=== PATIENT | female | born 1965 | race Caucasian/White ===

== ENCOUNTER 2020-07-22 19:18 | Emergency (ER) | payer OTHER, SELFPAY ==
[2020-07-22 19:24] VITALS: BP 188/86; PULSE 66; RESP 20; TEMP 37.3; O2SAT 98
--- NOTE | 2020-07-22 19:24 | ED.BACK ---
HPI - Back Pain/Injury General Chief Complaint: Back Pain/Injury Stated Complaint: back pain Time Seen by Provider: 07/22/20 19:24 Source: patient and RN notes reviewed History of Present Illness HPI Narrative: Patient is a 54-year-old female who presents the urgent care with complaints of mid back pain. 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 Patient states that she is only tried Tylenol for her pain and has to avoid NSAIDs. Patient denies any difficulty walking. Denies any urinary complaints. States that the pain exacerbates when bending at the waist and twisting. No other acute complaints. No acute distress noted. Patient read the plan of care. Related Data Home Medications Medication Instructions Recorded Confirmed cetirizine 10 mg PO DAILY 07/22/20 07/22/20 fluticasone propionate [Flonase 2 spray INTRANASAL DAILY 07/22/20 07/22/20 Allergy Relief] pantoprazole 40 mg PO QAM 07/22/20 07/22/20 Allergies Allergy/AdvReac Type Severity Reaction Status Date / Time latex Allergy Unknown RASH Verified 07/22/20 19:29 metronidazole Allergy Unknown N/V Verified 07/22/20 19:29 Review of Systems Review of Systems: Narrative: CONSTITUTIONAL: Denies fever, chills, or sweats. EYES: Denies visual changes, redness, or discharge. ENT: Denies rhinorrhea, congestion, sore throat, or otalgia. CARDIOVASCULAR: Denies chest pain, palpitations, or edema. RESPIRATORY: Denies cough or dyspnea. GASTROINTESTINAL: Denies abdominal pain, nausea, vomiting, or diarrhea. GENITOURINARY: Denies dysuria or hematuria. SKIN: Denies rash or itching. MUSCULOSKELETAL: Reports of mid back pain NEUROLOGIC: Denies headache, numbness, or weakness. All other systems reviewed are negative, except as documented in HPI. PMFSH Comments At the time of my signature, I reviewed and agree with the nursing past medical, surgical, social, and family history. There is no relevant family history pertinent to the patient complaint. Exam Narrative: Exam Narrative: GENERAL: This is a well-nourished, well-developed patient, in no apparent distress. HEAD: normocephalic, atraumatic. EYES: PERRL. Sclera clear/white. Vision is grossly intact. EARS: External ears normal NOSE: External nose normal with no obvious nasal discharge, nares without redness, no rhinorrhea. THROAT: Mucous membranes moist NECK: Neck supple SKIN: warm, intact with no suspicious lesions or rash, good texture and turgor. NEURO: awake, alert, and oriented to person, place and time. There were no obvious focal neurologic abnormalities. EXTREMITIES: No clubbing, cyanosis, or edema. BACK: Mild diffuse thoracic tenderness without deformity or crepitance. No flank tenderness. Negative bilateral SLE Course Vital Signs Vital signs: Vital Signs Temperature 99.2 F 07/22/20 19:24 Pulse Rate 66 07/22/20 19:24 Respiratory Rate 20 07/22/20 19:24 Blood Pressure 188/86 H 07/22/20 19:24 Pulse Oximetry 98 07/22/20 19:24 Temperature 99.2 F 07/22/20 19:24 Pulse Rate 66 07/22/20 19:24 Respiratory Rate 20 07/22/20 19:24 Blood Pressure 188/86 H 07/22/20 19:24 Pulse Oximetry 98 07/22/20 19:24 Reviewed-patient is informed that they may have pre-hypertension or hypertension based on a blood pressure reading in the department. I recommend the patient call the primary care provider listed on their discharge instructions or a physician of their choice this week to arrange follow-up for further evaluation of possible pre-hypertension or hypertension. MDM - Back Pain/Injury MDM Narrative Medical decision making narrative: Advised the patient to complete steroid regimen as prescribed. Make sure to use a muscle relaxer as needed for muscle spasms or prior to bedtime. Eat and drink with the medications. Be aware that Flexeril will make you drowsy and I would not advise
== END 2020-07-22 19:35 | disposition home or self-care (01) ==
PROVIDERS: Emergency Provider Nurse Practitioner Family; PCP Family Medicine
DX: M54.6 Pain in thoracic spine (principal); K21.9 Gastro-esophageal reflux disease without esophagitis
CPT/HCPCS: 99213; G0463

== ENCOUNTER 2024-01-31 17:37 | Emergency (ER) | payer BC, SELFPAY ==
[2024-01-31 17:46] VITALS: BP 171/106; PULSE 95; RESP 20; TEMP 36.7; O2SAT 97
--- NOTE | 2024-01-31 18:16 | ED.ABDPAIN ---
HPI - Abdominal Pain General Chief Complaint: Abdominal Pain Stated Complaint: abdo pains/nausea Time Seen by Provider: 01/31/24 18:16 Source: patient and RN notes reviewed Mode of arrival: ambulatory Limitations: no limitations History of Present Illness HPI narrative: 58-year-old female with history of hiatal hernia repair 3 years ago presented for complaint of intermittent upper abdominal pain, bloating, nausea and belching for 5 days. LBM yesterday, states it was small and hard over the past few days. States she had one episode of vomiting at onset. Endorses decreased appetite. Rates abdominal pain 8/10 at times. Currently states she feels 'uncomfortable.' States she is 'concerned for her gallbladder, pancreas or colon. Denies urinary complaints, back/flank pain, vomiting, diarrhea, or fever. Related Data Home Medications Medication Instructions Recorded Confirmed cetirizine 10 mg capsule 10 mg PO DAILY 07/22/20 01/31/24 fluticasone propionate 50 2 spray intranasal DAILY 07/22/20 01/31/24 mcg/actuation nasal spray,suspension (Flonase Allergy Relief) ergocalciferol (vitamin D2) 1,250 1,250 mcg PO WEEKLY 01/31/24 01/31/24 mcg (50,000 unit) capsule Allergies Allergy/AdvReac Type Severity Reaction Status Date / Time latex Allergy Unknown RASH Verified 01/31/24 18:11 fluconazole [From Diflucan] AdvReac Unknown Nausea and Verified 01/31/24 18:11 Vomiting metronidazole AdvReac Unknown N/V Verified 01/31/24 18:11 Review of Systems Review of Systems: CONSTITUTIONAL: Denies body aches, fever, chills ENT: Denies rhinorrhea, congestion CARDIOVASCULAR: Denies chest pain, palpitations, or edema. RESPIRATORY: Denies cough or dyspnea. GASTROINTESTINAL: Endorses abdominal pain, nausea, Denies vomiting, diarrhea, hematochezia, melena, hematemesis GENITOURINARY: Denies dysuria, hematuria, or CVA tenderness. SKIN: Denies rash, itching, or wounds. MUSCULOSKELETAL: Denies back pain, joint pain, or myalgia. NEUROLOGIC: Denies headache, numbness, tingling, or weakness. All systems reviewed & are unremarkable except as noted in HPI and below PMFSH Surgical History Surgical History (Updated 01/31/24 @ 19:19 by Raiza Macedo APRN) History of repair of hiatal hernia Comments At time of signature, I have reviewed and agree with nursing past medical, surgical, social and family history unless otherwise noted. Please see nursing chart for further information. There is no relevant family history pertinent to the presenting complaint Exam Narrative: GENERAL: Well-appearing, and in no acute distress. EYES: EOMI. Conjunctivae normal. ENT: Mucous membranes pink and moist. CHEST: No respiratory distress. Clear to auscultation. HEART: Regular rate and rhythm. No murmur appreciated. Normal peripheral pulses. ABDOMEN: abd soft, mildly distended, normal active bowel sounds. Tender abdomen to bilateral upper quadrants, No guarding, rebound tenderness, asymmetry EXTREMITIES: Normal range of motion. No edema. SKIN: Warm, dry, no rash. Capillary refill normal. Normal skin turgor. NEURO: No focal deficits. Alert and oriented x3. Course Course Emergency Course: Patient is aware of diagnosis, understands and agrees to treatment plan. Anticipatory guidance given. Patient agrees to follow-up as directed and is aware of reasons to seek care at the emergency department. Portions of this record may have been created with voice recognition software Level of Care: Express Care Visit Vital Signs Vital signs: Vital Signs Temperature 98.1 F 01/31/24 17:46 Pulse Rate 95 01/31/24 17:46 Respiratory Rate 01/31/24 17:46 Blood Pressure 171/106 H 01/31/24 17:46 Pulse Oximetry 97 01/31/24 17:46 Oxygen Delivery Room Air 01/31/24 17:46 Temperature 98.1 F 01/31/24 17:46 Pulse Rate 95 01/31/24 17:46 Respiratory Rate 20 01/31/24 17:46 Blood Pressure 171/106 H 01/31/24 17:46 Pu
== END 2024-01-31 18:40 | disposition left against medical advice (07) ==
PROVIDERS: Emergency Provider Nurse Practitioner Family; PCP Family Medicine
DX: R10.11 Right upper quadrant pain (principal); R10.12 Left upper quadrant pain; K21.9 Gastro-esophageal reflux disease without esophagitis
CPT/HCPCS: 81003; 87086; 99203; G0463

== ENCOUNTER 2025-01-17 08:27 | Emergency (ER) | payer BC, SELFPAY ==
[2025-01-17 08:38] VITALS: BP 142/87; PULSE 70; RESP 16; TEMP 36.6; O2SAT 96
--- OUTSIDE RECORDS SUMMARY | 2025-01-17 08:41 | XMS_ITS | Clinical Summary ---
Author Organization [facility] Address [address] [place] [id number] Care Team Providers Care Endless Bed Drum Sander Name Role Phone Unavailable Primary Care Provider Unavailabl e Encounters Date Type Department Care Team Description 12/05/2024 External Device Data [facility] ABSTRACTION Provider, Abstract 12/05/2024 External Device Data [facility] ABSTRACTION Provider, Abstract 11/20/2024 External Device Data [facility] ABSTRACTION Provider, Abstract from Last 3 Months Social History Tobacco Use Types Packs/Day Years Used Date Smoking Tobacco: Never Assessed Comments Unknown Sex and Gender Information Value Date Recorded Sex Assigned at Not on file 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 Gender Identity Not on file Sexual Orientation Not on file Plan of Treatment Health Maintenance Due Date Last Done Comments HEPATITIS B VACCINES (1 of 3 - 19+ 3-dose series) 1986 CERVICAL CANCER SCREENING 1997 FIT-DNA Q 3 years 2012 FIT/FOBT Q 1 year 2012 Flex Sig/CT Colonography Q 5 years 2012 ZOSTER VACCINE (1 of 2) 2017 DTAP/TDAP/TD VACCINES (2 - T d or Tdap) 11/20/2017 11/20/2007 BREAST CANCER SCREENING 12/22/2023 12/22/19 23, 11/25/2021, 11/24/2020, Additional history exists INFLUENZA VACCINE (#1) 2024 COLORECTAL SCREENING 04/19/2032 04/19/2022 Colorectal Cancer Screening 04/19/2032 Insurance [employer]
--- OUTSIDE RECORDS SUMMARY | 2025-01-17 08:41 | XMS_ITS | Clinical Summary ---
Author Organization [facility] Address [address] [place] [address] Phone Care Team Providers Care Pharmaceutical Specialty Representative Name Role Phone Federico Vasques MD Primary Care Provider [phone] Allergies Active Allergy Reactions Criticality Noted Date Comments Fluconazole Vomiting 02/01/2024 Metronidazole Unknown 02/02/2024 Medications cetirizine (ZyrTEC) 10 MG Tablet Take 10 mg by mouth daily. 4 Active ergocalciferol (VITAMIN D) 30412 UNIT Capsule Take 1.25 mg by mouth once a week. 4 Active Fluticasone Furoate (Flonase Sensimist) 27.5 MCG/SPRAY Suspension 2 Sprays by Nasal route daily. Active HYDROcodone-jairo taminophen (NORCO) 5-325 MG TabletIndicatio ns:Enteritis Take 1 Tablet by mouth every 4 hours as needed for Mild or more severe pain. 12 Tablet 4 Active ondansetron (ZOFRAN-ODT) 4 MG TABLET DISPERSIBLE Take 1 Tablet by mouth every 6 hours as needed for Nausea - 1st line. 10 Tablet 4 Active pantoprazole (PROTONIX) 40 MG Tablet Delayed Response Take 1 Tablet by mouth daily. 30 Tablet 4 Active polyethylene glycol (GLYCOLAX, MIRALAX) 17 g PackIndications :Constipation Take 1 Packet by mouth 2 times daily as needed for Constipation - 1st line. Dissolve in 4-8 oz of liquid. Indications: Constipation 90 Packet 4 Active senna (SENOKOT) 8.6 MG Tablet Take 1 Tablet by mouth 2 times daily as needed for Constipation - 2nd line. 30 Tablet 4 Active potassium chloride SA (KLORCON M) 20 MEQ Tablet Controlled Release Take 1 Tablet by mouth daily. 90 Tablet 4 Active Active Problems Problem Noted Date Diagnosed Date Enteritis 02/01/2024 DILMA on CPAP 02/01/2024 Chronic sinusitis 02/01/2024 Hiatal hernia 02/01/2024 Vitamin D deficiency 02/01/2024 Obesity 02/01/2024 Allergic rhinitis 02/01/2024 Encounters Date Type Department Care Team Description 12/05/2024 Transcribe Orders [facility] Central Scheduling [address] [place] [id number] Carlton Scott MD Visit for screening mammogram (Primary Dx) from Last 3 Months Social History Tobacco Use Types Packs/Day Years Used Date Smoking Tobacco: Never Smokeless Tobacco: Never Tobacco Cessation:Counseling Given: Not Answered Alcohol Use Standard Drinks/Week Comments Never 0 (1 standard drink = 0.6 oz pur e alcohol) [facility] Utilities Answer Date Recorded In the past 12 months has [employer], gas, oil, or water company threatened to shut off services in your home? Patient declined 02/01/2024 Social Connection and Isolation Panel [NHANES] A nswer Date Recorded In a typical week, how many times do you talk on the phone with family, friends, or neighbors? Patient declined 02/01/2024 How often do you get togethe r with friends or relatives? Patient declined 02/01/2024 How often do you attend anabaptism or jain serv ices? Patient declined 02/01/2024 Active Member of Clubs or Organizations Not on f ile 02/01/2024 How often do you attend meet ings of the clubs or organizations you belong to? Patient declined 02/01/2024 Are you , , di vorced, , never , or living with a partner? Patient declined 02/01/2024 AUDIT-C Answer Date Recorded Q1: How often do you have a drink containing alc ohol? Patient declined 02/01/2024 Q2: How many drinks containi ng alcohol do you have on a typical day when you are drinking? Patient declined 02/01/2024 Q3: How often do you have si x or more drinks on one occasion? Patient declined 02/01/2024 Overall Financial Resource Strain (CARDIA) Answe r Date Recorded How hard is it for you to pa y for the very basics like food, housing, medical care, and heating? Patient declined 02/01/2024 [facility] - Occupational Stress Questionnaire Answer Date Recorded Do you feel stress - tense, restless, nervous, or anxious, or unable to sleep at night because your mind is troubled all the time - these days? Patient declined 02/01/2024 Exercise Vital Sign Answer Date Recorde d On average, how many days pe r week do you engage in moderate to strenuous exercise (like a brisk walk)? Patient declined On average, how many minutes do you engage in exercise at this level? Patient declined 02/01/2024 Hunger Vital Sign Answer Date Recorded Within the past 12 months, y ou worried that your food would run out before you got the money to buy more. Patient declined Within the past 12 months, t he food you bought just didn't last and you didn't have money to get more. Patient declined PRAPARE - Transportation Answer Date Re corded In the past 12 months, has l ack of transportation kept you from medical appointments or from getting medications? Patient declined 02/01/2024 In the past 12 months, has l ack of transportation kept you from meetings, work, or from getting things needed for daily living? Patient declined 02/01/2024 Housing Stability Vital Sign Answer Chava e Recorded In the last 12 months, was t here a time when you were not able to pay the mortgage or rent on time? Patient declined 02/01/20 24 In the last 12 months, how many places have you lived? 1 02/01/2024 In the last 12 months, was t here a time when you did not have a steady place to sleep or slept in a jail (including now)? Patient declined 02/01/2024 Comments No Sex and Gender Information Value Date Recorded Sex Assigned at Not on file Legal Sex Female 11:27 PM CDT Gender Identity Not on file Sexual Orientation Not on file Last Filed Vital Signs Vital Sign Reading Time Taken Comments Blood Pressure 154/77 02/02/2024 2:00 PM CDT Pulse 58 02/02/2024 2:00 PM CDT Temperature 36.4 C (97.5 F) 02/02/2024 2:00 PM CDT Respiratory Rate 18 02/02/2024 2:00 PM CDT Oxygen Saturation 96% 02/02/2024 2:00 PM CDT Inhaled Oxygen Concentration - - Weight 100.6 kg (221 lb 11.2 oz) 02/01/2024 8:30 PM CDT Height 170.2 cm (5' 7 ) 02/01/2024 8:30 PM CDT Body Mass Index 34.72 02/01/2024 8:30 PM CDT Plan of Treatment Health Maintenance Due Date Last Done Comments Hepatitis C Virus (HCV) Screening 1967 Hepatitis B Immunization (1 of 3 - 19+ 3-dose series) 1986 Pap Smear 1988 Cervical Cancer Screening (CCS) 1997 HPV/Cotest 1997 Cologuard 2017 Pneumococcal Immunization (50+ years) (1 of 1 - PCV) 2017 Zoster Immunization (1 of 2) 2017 Immunochemical Fecal Occult Blood 08/27/2023 08/27/2022 Influenza Immunization (#1) 2024 SARS-COV-2 Immunization ( season) 2024 02/24/2021, 01/29/2021 Mammogram 01/05/2025 01/05/2024, 02/0 06/2023, 12/22/2022, Additional history exists Colonoscopy 04/19/2032 04/19/2022 Colorectal Cancer Screening 04/19/2032 Respiratory Syncytial Virus (RSV) Immunization (Adult) (1 - 1-dose 75+ series) 2042 04/19/2022 DTaP/Tdap/Td Immunization Discontinued 11/20/2007 TdaP Immunization Completed 11/20/2007 Meningococcal Immunization (ACWY) Aged Out No longer eligible based on patient's age to complete this topic Rotavirus Immunization Aged Out No lo nger eligible based on patient's age to complete this topic Procedures Procedure Name Priority Date/Time Associated Diagnosis Comments NAYE SCREENING BILATERAL DIGITAL W CAD W HUDSON Routine 01/05/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 Visit for screening mammogram from Last 3 Months or Most Recently Relevant to Health Maintenance Results * NAYE SCREENING BILATERAL DIGITAL W CAD W HUDSON (01/05/2024 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 Current study was also evaluated with PlaymysongD version 7.2. 2D digital mammographic views, as well as 3D digital tomosynthesis were performed in the CC and MLO projections. CLINICAL: Routine screening. Patient has no complaints. No personal history of cancer. No family history of breast cancer. COMPARISONS: Comparison is made to exams dated: 12/22/2022, 11/25/2021, and 11/24/2020 [facility]. BREAST TISSUE:The tissue of both breasts is heterogeneously dense. This may lower the sensitivity of mammography. FINDINGS: No significant masses, calcifications, or other findings are seen in either breast. There has been no significant interval change. IMPRESSION: BI-RAD 1 NEGATIVE There is no mammographic evidence of malignancy. A 1 year screening mammogram is recommended. A letter will be sent to the patient with these results. The patient will be entered into a reminder system with a target due date of 1 year for her next screening exam. Electronically signed by: Viviana phillips/sandee:01/05/2024 14:31:11 Dental Hygiene Administrative Assistant(s): RT Kanika(R)(M), [facility] letter sent: Normal Exam Reading location: [facility] BI-RADS: 1 Negative Procedure Note Viviana Duarte MD - 01/05/2024 - NAYE SCREENING BILATERAL DIGITAL W CAD W HUDSON BILATERAL DIGITAL SCREENING MAMMOGRAM 3D/2D WITH CAD WITH MEDIOLATERAL OBLIQUE CRANIOCAUDAL: 01/05/2024 The study was acquired using digital technology and interpreted from soft copy. Current study was also evaluated with ICAD version 7.2. 2D digital mammographic views, as well as 3D digital tomosynthesis were performed in the CC and MLO projections. CLINICAL: Routine screening. Patient has no complaints. No personal history of cancer. No family history of breast cancer. COMPARISONS: Comparison is made to exams dated: 12/22/2022, 11/25/2021, and 11/24/2020 [facility]. BREAST TISSUE:The tissue of both breasts is heterogeneously dense. This may lower the sensitivity of mammography. FINDINGS: No significant masses, calcifications, or other findings are seen in either breast. There has been no significant interval change. IMPRESSION: BI-RAD 1 NEGATIVE There is no mammographic evidence of malignancy. A 1 year screening mammogram is recommended. A letter will be sent to the patient with these results. The patient will be entered into a reminder system with a target due date of 1 year for her next screening exam. Electronically signed by: Viviana Duarte M.D. ll/sandee:01/05/2024 14:31:11 Dental Hygiene Administrative Assistant(s): RT Kanika(R)(M), [facility] letter sent: Normal Exam Reading location: [facility] BI-RADS: 1 Negative Federico Vasques MD IMG MAMMO ORDERABLES Aicha l Result from Last 3 Months or Most Recently Relevant to Health Maintenance Insurance [facility] Advance Directives * Full Code (Latest Code Status on File) Date Activated Date Inactivated Comments 02/01/2024 8:29 PM 02/02/2024 5:29 PM CPR-Full Huan atment: FULL ARREST: Attempt Resuscitation/CPR wit intubation and mechanical ventilation. PRE-ARREST: Use entire range of life support measures to stabilize the patient. Care Teams Pharmaceutical Specialty Representative Relationship Specialty Start Date End Date Feder[place] [address] PCP - General Internal Medicine 11/24/20
--- NOTE | 2025-01-17 08:43 | ED.FEMALEGU ---
HPI - Female Genitourinary General Chief complaint: Urogenital-Female Stated complaint: Urinary Problem Time Seen by Provider: 01/17/25 08:43 Source: patient and RN notes reviewed Mode of arrival: ambulatory Limitations: no limitations History of Present Illness HPI Narrative: 59 y/o female presented for c/o low abdominal aching for 2 days. Endorses urinary urgency and frequency and odor to urine which she says smells like yeast. Also says she is voiding small amounts. Denies vaginal itching, hematuria, nausea, vomiting, flank pain, constipation, diarrhea, fevers or chills. Took AZO 0100. Related Data Home Medications ?Medication ?Instructions ?Recorded ?Confirmed ?Last Taken ?Type cetirizine 10 mg capsule 10 mg PO DAILY 07/22/20 01/17/25 Unknown History fluticasone propionate 50 2 spray intranasal DAILY 07/22/20 01/31/24 Unknown History mcg/actuation nasal spray,suspension (Flonase Allergy Relief) Allergies Allergy/AdvReac Type Severity Reaction Status Date / Time latex Allergy Unknown RASH Verified 01/17/25 08:52 fluconazole (From Diflucan) AdvReac Unknown Nausea and Verified 01/17/25 08:52 Vomiting metronidazole AdvReac Unknown N/V Verified 01/17/25 08:52 Review of Systems Review of Systems: CONSTITUTIONAL: Denies body aches, fever, chills, or sweats. CARDIOVASCULAR: Denies chest pain, palpitations, or edema. RESPIRATORY: Denies cough or dyspnea. GASTROINTESTINAL: Denies abdominal pain, nausea, vomiting, or diarrhea. GENITOURINARY: Reports dysuria, frequency,denies hematuria, flank pain SKIN: Denies rash, itching, or wounds. MUSCULOSKELETAL: Denies back pain or myalgia. [facility] Surgical History Surgical History (Updated 01/31/24 @ 19:19 by Raiza Macedo, ANIBAL) History of repair of hiatal hernia Comments At time of signature, I have reviewed and agree with nursing past medical, surgical, social and family history unless otherwise noted. Please see nursing chart for further information. There is no relevant family history pertinent to the presenting complaint Exam Narrative: GENERAL: Well-appearing ENT: Mucous membranes pink and moist. CHEST: No respiratory distress. Clear to auscultation. HEART: Regular rate and rhythm. ABDOMEN: Soft, nontender, nondistended, normal active bowel sounds. No CVA tenderness SKIN: Warm, dry, no rash. NEURO: No focal deficits. Alert and oriented x3. Gait steady. PSYCH: Normal affect. Course Course Emergency Course: Patient is aware of diagnosis, understands and agrees to treatment plan. Anticipatory guidance given. Patient agrees to follow-up as directed and is aware of reasons to seek care at the emergency department. Portions of this record may have been created with voice recognition software Level of Care: Express Care Visit Vital Signs Vital signs: Vital Signs Temperature 97.9 F 01/17/25 08:38 Pulse Rate 70 01/17/25 08:38 Respiratory Rate 16 01/17/25 08:38 Blood Pressure 142/87 H 01/17/25 08:38 Pulse Oximetry 96 01/17/25 08:38 Oxygen Delivery Room Air 01/17/25 08:38 Temperature 97.9 F 01/17/25 08:38 Pulse Rate 70 01/17/25 08:38 Respiratory Rate 16 01/17/25 08:38 Blood Pressure 142/87 H 01/17/25 08:38 Pulse Oximetry 96 01/17/25 08:38 Oxygen Delivery Room Air 01/17/25 08:38 Reviewed MDM - Female Genitourinary MDM Narrative Medical decision making narrative: Discussed physical exam findings and urine dip. Pt will try OTC monistat if vaginal itching develops. Advised supportive measures and signs/symptoms to go to the ER. Pt is appropriate for outpt treatment and f/u. Differential Diagnosis Differential diagnosis: Likely urinary tract infection, vaginitis and cystitis Discharge Plan Discharge Clinical Impression: Dysuria Patient Disposition: Home, Self-Care Condition: Stable Instructions: Antibiotic Form, Urinary Tract Infection in Women (ED) Additional Instructions: Take the antibiotic as prescribed The urine will be sent of for a culture to identify what type of bacteria is causing your infection. If the culture shows that the antibiotic will not get rid of your infection, you will be notified and a new antibiotic will be called in for you. Increase water intake you will need to follow up with your PCP, call to schedule an appointment. Go to the ER for any worsening symptoms or concerns Patient Language: [place] Citizen Prescriptions: New nitrofurantoin monohyd/m-cryst [Macrobid] 100 mg capsule 100 mg PO Q12H 5 Days Qty: 10 0RF Rx Instructions: must administer with a meal/food No Action fluticasone propionate [Flonase Allergy Relief] 50 mcg/actuation [employer],Suspension 2 spray INTRANASAL DAILY cetirizine 10 mg Capsule 10 mg PO DAILY Follow-up/Referrals: Harms,Federico Lawson M.D. [Primary Care Provider] - Time of Disposition: 09:09
--- OUTSIDE RECORDS SUMMARY | 2025-01-17 08:44 | XMS_ITS | Clinical Summary ---
Author Organization [facility] Medical Office Building [address] Address [address] [place] [address] Care Team Providers Care Fire Boss Name Role Phone Vijay Samuels MD Unavailable [phone] Carlton Scott MD Unavailable [phone] Yoselyn Plata MD Unavailable Lluvia Knapp NP Unavailable [phone] Federico Vasques MD Primary Care Provider [phone] Allergies Active Allergy Reactions Criticality Noted Date Comments Fluconazole Nausea only,Vomiting,Nausea And Vomiting,Diarrhea Low 01/05/2010 Reaction: nausea, vomiting, Latex Rash Medium Metronidazole Other (See comments),Nausea & Vomiting,Nausea And Vomiting,Vomiting,Di arrhea Low 01/05/2010 Reaction: Gastrointestinal Intolerance, , Reaction: NAUSEA Medications fluticasone (VERAMYST) 27.5 mcg/actuation nasal sprayIndication s:Allergic Rhinitis Administer 2 sprays into each nostril daily Active cetirizine (ZyrTEC) 10 mg tablet TAKE 1 TABLET BY MOUTH DAILY NEEDED FOR ALLERGIES 90 tablet 4 4 Active solriamfetoL (Sunosi) 150 mg tablet Take 1 tablet (150 mg total) by mouth daily 30 tablet 5 01/24/20 25 Active Active Problems Problem Noted Date Diagnosed Date Annual physical exam 11/09/2024 Assessment & Plan (11/09/2024 10:36 AM FARM FACILITY MANAGER): Focus of exam is preventative in nature, Reivewed immunizatonis, revewied sun/skin cancer screening. Reviewed colon/breast cancer screening and will montior response. Encourage helathy food choices. Lipid screening 11/09/2024 Assessment & Plan (11/09/2024 10:37 AM FARM FACILITY MANAGER): Labwork ordered and pending. DILMA on CPAP 11/09/2024 Assessment & Plan (11/09/2024 10:37 AM FARM FACILITY MANAGER): Reviewed nightly positive pressure therapy and will continue to follow response. BMI 33.0-33.9,adult 11/09/2024 Assessment & Plan (11/09/2024 10:37 AM FARM FACILITY MANAGER): Encourage 150min/week aerobic exericse. Heatlhy food choices. Obesity (BMI 30.0-34.9) 11/09/2024 Assessment & Plan (11/09/2024 10:37 AM FARM FACILITY MANAGER): As above. Intermittent constipation 04/13/2024 Tubular adenoma of colon 04/13/2024 Chronic sinusitis 03/05/2024 Assessment & Plan (11/09/2024 10:36 AM FARM FACILITY MANAGER): As above. Assessment & Plan (03/05/2024 9:12 AM CDT): Blood Allergy testing CT Sinus Continue current allergy therapy Risks and complications include anesthesia, bleeding, infection, injury to surrounding structures including brain with csf leak, eyes with vision changes, nasal mucosa, atrophic rhinitis, benign versus malignant pathology, no guarantee that sense of smell will return, need for further surgery. Enteritis 02/07/2024 Nausea vomiting and diarrhea 02/07/2024 Acute non-recurrent pansinusitis 10/11/2023 Assessment & Plan (10/11/2023 11:06 AM FARM FACILITY MANAGER): Prescribed Augmentin, instructed patient to take medication with food. Complete prednisone taper as prescribed. Recommended patient use sinus rinse with distilled water only. Continue Flonase. Follow-up if no improvement. Jovanni med sinus rinse Diverticular disease 03/18/2022 History of diverticulitis 03/18/2022 Assessment & Plan (11/09/2024 10:36 AM FARM FACILITY MANAGER): No recurrent enteritis sypjtoms. Reivweed workup with GI. History of repair of hiatal hernia 02/09/2022 Assessment & Plan (11/09/2024 10:35 AM FARM FACILITY MANAGER): Limits emesis and wretchintg during periods of prior evalaution. Assessment & Plan (12/29/2022 5:01 PM FARM FACILITY MANAGER): Repair of the hiatal hernia cleared most of her GI symptoms. Good recover and no issues at this time. Passage of loose stools 02/09/2022 Right sided abdominal pain 02/09/2022 Change in bowel habits 02/09/2022 Dyspepsia 04/09/2021 Assessment & Plan (12/29/2022 5:03 PM FARM FACILITY MANAGER): Related to GERD and improved after the hiatal hernia repair. She is taking Probiotics, and advised that she can continue if she feels better with the probiotics. Also advised to take a month break every few months to allow normal GI lizabeth growth. No Gi issues and she will call for follow up if needed. Assessment & Plan (06/24/2022 9:35 AM CDT): Patient with chronic functional dyspepsia likely part of IBS. Will try low FODMAP diet. Information provided. Assessment & Plan (04/09/2021 10:45 AM CDT): Discussed diet to avoid uncooked raw vegetables and avoid sweet sugar foods. Can use Reglan as needed. No need for further evaluation. Follow up as needed and patient to call for any new problems. Hx of adenomatous colonic polyps 04/09/2021 Assessment & Plan (04/09/2021 10:46 AM CDT): Next colonoscopy in 2021. Encounter for screening for lipoid disorders Assessment & Plan (11/03/2020 8:25 AM FARM FACILITY MANAGER): Lipid panel ordered; will call w/results when received. Reviewed diet/exercise recommendations. Encounter for screening mamm ogram for malignant neoplasm of breast 11/03/2020 Assessment & Plan (11/03/2020 8:26 AM FARM FACILITY MANAGER): Mammogram order given; will call with results when received. Encouraged to perform monthly SBE. Encounter for medical examination to establish c are 11/01/2020 Assessment & Plan (11/01/2020 9:04 PM FARM FACILITY MANAGER): -reviewed screening guidelines: no family history of breast or colon cancer. -Encouraged monthly SBEs. Mammogram 06/27/19; reordered today. -Colonoscopy 08/12/17, repeat 5 yrs. -UTD on immunizations. -discussed diet/exercise: daily recommendations of 20-30 minutes physical activity daily, watch fat/sugar intake. -denies safety/violence. Wears seatbelt. Aware to not text/talk and drive. -does not smoke nor drink ETOH -lives at home with supportive family Severe obstructive sleep apnea 06/03/2020 Assessment & Plan (11/09/2024 10:35 AM FARM FACILITY MANAGER): Continues on nightly CPAP therapy to good effect and will montior response. Assessment & Plan (11/01/2020 9:06 PM FARM FACILITY MANAGER): Managed by Dr Plata. DILMA/CPAP. Hiatal hernia 10/14/2019 Overview (06/17/2020): Managed by GI Assessment & Plan (12/04/2020 10:52 AM FARM FACILITY MANAGER): I will set the patient up for a paraesophageal hernia repair. Even though she has normal esophageal motility seen on esophagram she does complain of some mild dysphagia as again she quotes have a small esophagus, I will therefore Set her up for a partial wrap. Postoperative restrictions have been discussed. Surgical procedure has been explained. All questions answered at this time. I will order a CT scan to better define the anatomy in preparation for surgery Assessment & Plan (12/03/2020 3:36 PM FARM FACILITY MANAGER): Patient continues to have symptoms of gastroesophageal reflux disease likely related to the presence of the small hiatal hernia contributing to the reflux. I will refer the patient to surgery for hiatal hernia repair consideration. Assessment & Plan (07/05/2020 11:44 PM CDT): Small hiatal hernia noted on endoscopy. Symptoms controled. Assessment & Plan (11/11/2019 7:27 PM FARM FACILITY MANAGER): This is likly adding to her persistent symptoms. Will follow up in 3 months. If she remained symptomatic specially with vomiting and regurgitation then schedule her for 24 hours esophageal impedence pH monitoring with motility testing and discuss surgical repair. Assessment & Plan (10/14/2019 6:47 PM FARM FACILITY MANAGER): This is likely a main contributing factor for her GERD symptoms. She may eventually need surgical repair surgery if medications did not control her symptoms. Class 2 obesity due to exces s calories without serious comorbidity with body mass index (BMI) of 35.0 to 35.9 in adult 09/24/2019 Assessment & Plan (06/17/2020 10:30 AM CDT): Weight reduction, daily exercise and dietary modifications recommended. Assessment & Plan (04/03/2020 9:38 AM CDT): Discussed with the patient diet modifications. This will help her symptoms and also will assure better outcome if we want with hiatal hernia repair surgery for acid reflux disease. Assessment & Plan (11/11/2019 7:29 PM FARM FACILITY MANAGER): Patient need agressive intervention for weight loss. So far seems she want to do it herself. Weight loss will improve outcome for HH repair surgery as well as likely help better control her symptoms. Assessment & Plan (10/14/2019 6:48 PM FARM FACILITY MANAGER): Patient will benefit from weight loss to control her symptoms, and also improve outcome with any surgical repair of the hiatal hernia. Assessment & Plan (09/24/2019 8:06 PM FARM FACILITY MANAGER): Worsening. Encouraged patient to decrease weight, increase daily exercise, and modify diet. GERD (gastroesophageal reflux disease) 9 Overview (06/17/2020): Managed by GI Assessment & Plan (12/29/2022 5:01 PM FARM FACILITY MANAGER): All symptoms resolved after repair of the hiatal hernia. No GI issues now. Advised to continue on healthy life style and diet. Assessment & Plan (06/24/2022 9:33 AM CDT): Asymptomatic now after the surgical repair of the hiatal hernia. Assessment & Plan (04/09/2021 10:43 AM CDT): Doing well. All symptoms resolved after the hiatal hernia repair. Can use Protonix as needed only. Follow up as needed. Assessment & Plan (12/03/2020 3:35 PM FARM FACILITY MANAGER): Persistent regurgitation and the vomiting and heartburn symptoms likely related to her small hiatal hernia and low GE junction sphincter pressure. Will continue Protonix on daily basis and also restart Reglan twice a day. Assessment & Plan (11/01/2020 9:05 PM FARM FACILITY MANAGER): Taking pantoprazole 40mg daily. Reviewed provocative foods to avoid: caffeine, citrus, ETOH, carbonated drinks, fried/fatty/fast foods & rich/creamy sauces. Reviewed diet/exercise recommendations: 20-30min physicaly activity daily at minimum. Reviewed med Ses & scheduling. Weight loss will help improve GERD sxs. Keep HOB elevated 30 degrees & not eat 2-3 hrs before bedtime. Assessment & Plan (07/05/2020 11:43 PM CDT): Doing well with Protonix. Continue daily or every other day. Follow up 1 year. Assessment & Plan (06/17/2020 10:30 AM CDT): Managed by GI. Assessment & Plan (04/03/2020 9:37 AM CDT): Symptoms are controlled with the current regimen. Continue the same. Follow-up 3 months for Assessment & Plan (11/11/2019 7:26 PM FARM FACILITY MANAGER): Continue Protonix, discussed diet again, and will follow up in 3 months. Will add Reglan 10 mg to be taken 1-2 times daily before meals to improve gastric emptying and avoid regurgitation. Assessment & Plan (10/14/2019 6:45 PM FARM FACILITY MANAGER): Still having regurgitations adding to her dysphagia. Will continue Protonix daily, add Regaln 10 mg at night. Follow up in 4-6 weeks. Assessment & Plan (09/24/2019 8:06 PM FARM FACILITY MANAGER): Managed by GI. Perez. Cont. Current meds. Assessment & Plan (07/22/2019 11:20 AM CDT): Start Protonix once daily. Follow up in 1 month. Allergic rhinitis 05/20/2017 Assessment & Plan (11/09/2024 10:35 AM FARM FACILITY MANAGER): Continues on dual agent therapy and will continue on fluticasone and cetirizine. WIll follow response. Assessment & Plan (03/05/2024 9:11 AM CDT): Blood Allergy testing CT Sinus Continue current allergy therapy Risks and complications include anesthesia, bleeding, infection, injury to surrounding structures including brain with csf leak, eyes with vision changes, nasal mucosa, atrophic rhinitis, benign versus malignant pathology, no guarantee that sense of smell will return, need for further surgery. Assessment & Plan (10/11/2023 11:07 AM FARM FACILITY MANAGER): Patient taking Zyrtec nightly, unsure if she is noted any improvement. Would benefit from sinus rinses as mentioned above. Can try switching up antihistamines (claritin, xyzal),Will re-evaluate at follow-up next month. Assessment & Plan (06/17/2020 10:30 AM CDT): Symptoms improved with current regiment, continue. Assessment & Plan (09/24/2019 8:06 PM FARM FACILITY MANAGER): Add Zyrtec. Cont Flonase. Pure hypercholesterolemia 05/20/2017 Assessment & Plan (06/17/2020 10:30 AM CDT): Low chol diet recommended. Labs ordered, will follow. Assessment & Plan (04/03/2020 9:37 AM CDT): Patient has small hiatal hernia which I think contributing factor to her acid reflux. I think the patient will benefit from repair of the hiatal hernia which may help her to get off medications. In preparation she will need a barium swallow and motility study which will be arranged for the patient in the next visit. Follow-up in 3 months. Assessment & Plan (09/24/2019 8:05 PM FARM FACILITY MANAGER): Labs ordered, low chol diet recommended. Resolved Problems Problem Noted Date Diagnosed Date Resolved Date BMI 33.0-33.9,adult 11/03/2020 10/11/20 23 Assessment & Plan (11/03/2020 8:25 AM FARM FACILITY MANAGER): Reviewed need to lose weight, reviewed health benefits. Reviewed recommendations for daily intake & activity 20-30 minutes/day. Discussed healthy diet and importance of regular physical activity. UTI symptoms 11/03/2020 10/11/2023 Assessment & Plan (11/03/2020 8:56 AM FARM FACILITY MANAGER): NEG UA. Will start OTC Azo/yeast treatment. Dysphagia 07/19/2019 04/09/2021 Overview (06/17/2020): Managed by GI Assessment & Plan (07/05/2020 11:43 PM CDT): Resolved now. Assessment & Plan (04/03/2020 9:38 AM CDT): I think the intermittent symptoms of dysphagia and throat is more functional. Almost resolved at this time and I do not think further testing for this issue is needed. Assessment & Plan (10/14/2019 6:44 PM FARM FACILITY MANAGER): Remain symptomatic with symptoms likely related to her hiatal hernia. Will schedule Esophagogram for further evaluation. Assessment & Plan (07/22/2019 11:18 AM CDT): Schedule EGD for further evaluation. Maxillary sinusitis 01/09/2018 09/24/20 19 Assessment & Plan (01/09/2018 10:40 AM FARM FACILITY MANAGER): FLU test negative today in the office. Still having sinus problems and fatigue. May have been the flu but she is not testing positive today. May take several weeks to recover. Take OTC decongestants for congestion- Sudafed/Mucinex Tylenol for pain/fever If you have high blood pressure or any kidney disease use Tylenol only. Take an Antihistamines like Zyrtec or Claritin or Valerie daily at bedtime for the next 2-3 weeks. Can take Benadryl at bedtime for the next 3-4 days for immediate relief of runny nose and may help with sinus headache. Try saline nasal spray irrigations 2-4 times a day or try using Sonya pot as directed daily then use your Flonase or other corticosteroid nasal spray every day to decrease the swelling and inflammation in your nasal cavities. Drink plenty of water & get plenty of rest A humidifier may also help with congestion Abnormal weight loss 01/09/2018 019 Assessment & Plan (01/09/2018 10:36 AM FARM FACILITY MANAGER): 12 pound weight unintentional weight loss in 7 months. Will check TSH and CBCd. Pt with fatigue also. Acute cystitis 12/02/2016 09/24/2019 Overview (02/18/2017): Acute cystitis without hematuria Encounters Date Type Department Care Team Description 12/24/2024 8:15 AM FARM FACILITY MANAGER Office Visit [facility] [address] [place] [address] [address], [place] [address] Yoselyn Plata MD Severe obstructive sleep apnea (Primary Dx); Hypersomnia with sleep apnea; Obesity (BMI 30.0-34.9) 12/24/2024 Documentation [facility] [address] [place] [address] Amy Randhawa MA 11/09/2024 9:00 AM FARM FACILITY MANAGER Office Visit [facility] [address] [place] [address] Federico Vasques MD Lipid screening (Primary Dx); DILMA on CPAP; Allergic rhinitis, unspecified seasonality, unspecified trigger; Severe obstructive sleep apnea; History of diverticulitis; Chronic sinusitis, unspecified location; History of repair of hiatal hernia; BMI 33.0-33.9,adult; Obesity (BMI 30.0-34.9); Annual physical exam from Last 3 Months Immunizations Immunization Administration Dates Next Due Hep A, Adult 06/20/2006 Influenza, Unspecified 10/11/2023(Deferr ed: Patient Refused),10/20/2022(Deferred: Patient Refused),08/14/2022(Deferred: Patient Refused),11/05/2021(Deferred: Patient Refused),07/15/2021(Deferred: Patient Refused),11/03/2020(Deferred: Patient Refused),07/15/2020(Deferred: Patient Refused),11/14/2019(Deferred: Patient Refused),10/16/2018(Deferred: Patient ill today) MMR 11/20/2007 Tdap 11/20/2007 Surgical History Surgery Date Site/Laterality Comments OTHER SURGICAL HISTORY right elbow problem: repair OTHER SURGICAL HISTORY 11/14/2007 - 11/13/2008 nasal polyps/septal deviation: septoplasty with polyps removed SHOULDER SURGERY Right Many years ago per patient ELBOW SURGERY Right Many years ago per patient HYSTERECTOMY ROTATOR CUFF REPAIR Right HIATAL HERNIA REPAIR LAPAROSCOPIC HUBER FUNDOPLICATION COLONOSCOPY 08/12/2017 Medical History Medical History Date Comments Hx Other Medical right rotator c uff Hx Other Medical right elbow pro blem Hx Other Medical nasal polyps/se ptal deviation Hx Other Medical 06/21/2016 hyst; Comments: BLE 08/02/2016 - GERD (gastroesophageal reflux disease) Seasonal allergies Sleep apnea Urinary tract infection Colon polyp Nausea vomiting and diarrhea 02/07/2024 Family History Relation Name Status Comments Brother Alive Pt is unsure of health issues Father no contact in p ast 30 yrs Mother Other Patient is unsu re about mother's information. no contact since 9 y/o Sister 1 Alive Pt is unsure of health issues Sister 2 Alive Pt is unsure of health issues Social History Tobacco Use Types Packs/Day Years Used Date Smoking Tobacco: Never Smokeless Tobacco: Never Tobacco Cessation:Counseling Given: Not Answered Alcohol Use Standard Drinks/Week Comments No 0 (1 standard drink = 0.6 oz pur e alcohol) AUDIT-C Answer Date Recorded Q1: How often do you have a drink containing alc ohol? Never 04/13/2024 Average Number of Drinks Not on file 024 Frequency of Binge Drinking Not on file 03/16 PHQ-2 Answer Date Recorded PHQ-2 Total Score (If total score is 3 or more points, staff should administer the PHQ-9) 0 11/09/2024 Comments No Sex and Gender Information Value Date Recorded Sex Assigned at Not on file Legal Sex Female 3:40 PM FARM FACILITY MANAGER Gender Identity Not on file Sexual Orientation Not on file Obstetrics History Last Filed Vital Signs Vital Sign Reading Time Taken Comments Blood Pressure 157/94 12/24/2024 8:00 AM FARM FACILITY MANAGER Pulse 70 12/24/2024 8:00 AM FARM FACILITY MANAGER Temperature 36.7 C (98 F) 11/09/2024 8:56 AM FARM FACILITY MANAGER Respiratory Rate 18 11/09/2024 8:56 AM FARM FACILITY MANAGER Oxygen Saturation 96% 12/24/2024 8:00 AM FARM FACILITY MANAGER Inhaled Oxygen Concentration - - Weight 93 kg (205 lb) 12/24/2024 8:00 AM FARM FACILITY MANAGER Height 170.2 cm (5' 7.01 ) 12/24/2024 8:00 AM CS T Body Mass Index 32.1 12/24/2024 8:00 AM FARM FACILITY MANAGER Plan of Treatment Health Maintenance Due Date Last Done Comments Hepatitis C Screening 1965 Hepatitis B Screening 1985 Zoster Vaccine (1 of 2) 2017 Breast Cancer Screening-Mammogram 01/05/2025 01/05/2024, 01/05/2024, 01/05/2024, Additional history exists Depression Screening 11/09/2025 11/09/2024, 10/11/2023, 10/20/2022, Additional history exists Regular Well Visit/Exam 18-64 11/09/2025 11/09/2024, 10/28/2023, 10/20/2022, Additional history exists Colon Cancer Screening-Colonoscopy 04/19/2027 04/19/2022, 08/12/2017 DTaP/Tdap/Td Vaccine Discontinued 11/20/2007 Colon Cancer Screening-CT Colonography Discontinued 04/19/2022, 08/12/2017 Colon Cancer Screening-DNA Stool Discontinued 04/19/2022, 08/12/2017 Colon Cancer Screening-FIT Discontinued 04/19/2022, Colon Cancer Screening-Sigmoidoscopy Discontinued 04/19/2022, 08/12/2017 Influenza Vaccine Discontinued Pneumococcal vaccine <65 Aged Out No longer eligible based on patient's age to complete this topic Procedures Procedure Name Priority Date/Time Associated Diagnosis Comments MAMMOGRAPHY Routine 01/05/2024 COLONOSCOPY 04/19/2022 11:34 AM CDT from Last 3 Months or Most Recently Relevant to Health Maintenance Results * MAMMOGRAPHY (01/05/2024) Mammography Normal us Historical Provider HEALTH MAINTENANCE Final Result * COLONOSCOPY (04/19/2022 11:34 AM CDT) Anatomical Region Laterality Modality Other Narrative Procedure Note Vijay Samuels MD - 04/19/2022 11:34 AM CDT [facility] Patient Name: Tricia Gonzales Procedure Date: 04/19/2022 11:34 AM Date of : 1965 Admit Type: Outpatient Age: 56 Gender: Female Attending MD: Vijay Samuels M.D. Room: [facility] 1 Note Status: Finalized Patient Profile: This is a 56 year old female. No family history of colon cancer. History of colon polyps. Noted recent complaints of diarrhea mainly during the day. Procedure: Colonoscopy Indications: High risk colon cancer surveillance: Personalhistory of colonic polyps, Last colonoscopy: July2017 Referring MD: Federico Vasques M.D. Providers: Vijay Samuels M.D. Impression: - One 6 mm polyp in the cecum, removed with a jumbo cold forceps. Resected and retrieved. - Diverticulosis in the sigmoid colon and in the ascending colon. - Random colon biopsy performed. - Internal hemorrhoids. Recommendation: - Await pathology results. - Repeat colonoscopy in 3 - 5 years for screening purposes. - Continue present medications. Medicines: Monitored Anesthesia Care Complications: No immediate complications. Estimated Blood Loss: Estimated blood loss: none. Procedure: Pre-Anesthesia Assessment: - Prior to the procedure, a History and Physicalwas performed, and patient medications and allergieswere reviewed. The patient's tolerance of previous anesthesia was also reviewed. The risks andbenefits of the procedure and the sedation options and risks were discussed with the patient. All questions were answered, and informed consent was obtained. Prior Anticoagulants: The patient has taken noanticoagulant or antiplatelet agents. ASA Grade Assessment: III -A patient with severe systemic disease. Afterreviewing the risks and benefits, the patient was deemed in satisfactory condition to undergo the procedure. The benefits, risks and alternatives of theprocedure and sedation were discussed and informed consentwas obtained. All questions were answered. Please referto the signed informed consent document in the medical record. The bowel preparation used was Miralax via split dose instruction. The bowel preparation usedwas bisacodyl tablets via split dose instruction. The scope was passed under direct vision. The Pediatric Colonoscope PCF-H190L [id number] was introducedthrough the anus and advanced to the the cecum, identifiedby appendiceal orifice and ileocecal valve. Thequality of the bowel preparation was good. Bowel prep was administered using a split dose. Findings: The perianal and digital rectal examinations were normal. The appendiceal orifice appeared normal. A 6 mm polyp was found in the cecum. The polyp was sessile. The polyp was removed with a jumbo cold forceps. Resection and retrieval were complete. Multiple small-mouthed diverticula were found in the sigmoid colonand ascending colon. The colon (entire examined portion) appeared normal. Biopsies for histology were taken with a cold forceps from the entire colon for evaluation of microscopic colitis. Internal hemorrhoids were found during retroflexion. The hemorrhoids were small. Electronically signed by Vijay Samuels M.D. Vijay Samuels M.D. 04/19/2022 1:45:11 PM Number of Addenda: 0 Note Initiated On: 04/19/2022 11:34 AM Procedure Code(s): --- Professional --- 62743, Colonoscopy, flexible; with biopsy, single or multiple Diagnosis Code(s): --- Professional --- Z86.010, Personal history of colonic polyps K64.8, Other hemorrhoids D12.0, Benign neoplasm of cecum K57.30, Diverticulosis of large intestine without perforation orabscess without bleeding CPT copyright 2020 [employer]. All rights reserved. The codes documented in this report are preliminary and upon industrial economics teacher reviewmay be revised to meet current compliance requirements. Recognized by the [employer] for promoting quality in endoscopy Vijay Samuels MD ENDOSCOPY PROCEDURES Final Result from Last 3 Months or Most Recently Relevant to Health Maintenance Insurance [employer] [place] Advance Directives For more information, please contact: [phone] * Full Code (Latest Code Status on File) Date Activated Date Inactivated Comments 04/19/2022 11:29 AM 04/19/2022 6:44 PM * Full Code Date Activated Date Inactivated Comments 04/19/2022 11:29 AM 04/19/2022 11:29 AM * Full Code Date Activated Date Inactivated Comments 12/31/2020 12:59 PM 01/02/2021 4:26 PM * Full Code Date Activated Date Inactivated Comments 07/25/2019 1:20 PM 07/25/2019 7:03 PM * Full Code Date Activated Date Inactivated Comments 07/25/2019 1:20 PM 07/25/2019 1:20 PM Care Teams Fire Boss Relationship Specialty Start Date End Date [place] [address] PCP - General Family Medicine 11/03/20 Vijay Samuels MD Consulting Physician Gastroenterology 09/21/19 Carlton Scott MD Supervisor Boarding Obstetrics and Gynecology 09/24/19 Yoselyn Plata MD Consulting Physician Neurology 09/24/19 Lluvia nKapp NP Nurse Practitioner Family Medicine 11/03/20
--- OUTSIDE RECORDS SUMMARY | 2025-01-17 08:44 | XMS_ITS | Encounter Summary ---
Author Organization [facility] Healthcare Address [address] [place] [id number] Care Team Providers Care Patternmaker Grader Name Role Phone Vijay Samuels MD Unavailable [phone] Carlton Scott MD Unavailable [phone] Yoselyn Plata MD Unavailable Lluvia Knapp NP Unavailable [phone] Federico Vasques MD Primary Care Provider + [phone] Encounter Details Date Type Department Care Team (Late st Contact Info) Description 12/24/2024 Documentation [facility] [address] [place] [address] Amy Randhawa MA Social History Tobacco Use Types Packs/Day Years Used Date Smoking Tobacco: Never Smokeless Tobacco: Never Alcohol Use Standard Drinks/Week Comments No 0 [...] on file Legal Sex Female 3:40 PM VENEER TRIMMER Gender Identity Not on file Sexual Orientation Not on file documented as of this encounter Plan of Treatment Not on file documented as of this encounter Visit Diagnoses Not on filedocumented in this encounter Care Teams Patternmaker Grader Relationship Specialty Start Date End Date Federico Vasques MD [address] [place] [address] PCP - General Family Medicine 11/03/20 Vijay Samuels MD Consulting Physician Gastroenterology 09/21/19 Carlton Scott MD Advertising Assistant Obstetrics and Gynecology 09/24/19 Yoselyn Plata MD Consulting Physician Neurology 09/24/19 Lluvia Knapp NP Nurse Practitioner Family Medicine 11/03/20 documented as of this encounter
--- OUTSIDE RECORDS SUMMARY | 2025-01-17 08:44 | XMS_ITS | Referral Summary ---
Author Organization [facility] Medical Office Building [facility] Address [address] [place] [address] Care Team Providers Care Marketing Information Analyst Name Role Phone Vijay Samuels MD Unavailable [phone] Carlton Scott MD Unavailable [phone] Yoselyn Plata MD Unavailable Lluvia Knapp NP Unavailable [phone] Federico Vasques MD Primary Care Provider Encounters Date Type Department Care Team Description 12/24/2024 Documentation [facility] [address] [place] [address] [address] [place] [phone] Amy Randhawa PA 12/24/2024 8:15 AM AUTOMOBILE SERVICE ADVISOR Office Visit [facility] [address] [place] [address] [address] [place] [phone] Yoselyn Plata MD Severe obstructive sleep apnea (Primary Dx); Hypersomnia with sleep apnea; Obesity (BMI 30.0-34.9) 11/09/2024 9:00 AM AUTOMOBILE SERVICE ADVISOR Office Visit [facility] [address] [phone] Federico Vasques MD Lipid screening (Primary Dx); DILMA on CPAP; Allergic rhinitis, unspecified seasonality, unspecified trigger; Severe obstructive sleep apnea; History of diverticulitis; Chronic sinusitis, unspecified location; History of repair of hiatal hernia; BMI 33.0-33.9,adult; Obesity (BMI 30.0-34.9); Annual physical exam from Last 3 Months Allergies Active Allergy Reactions Criticality Noted Date [...] 11/09/2024 Assessment & Plan (11/09/2024 10:36 AM AUTOMOBILE SERVICE ADVISOR): Focus of exam is preventative in nature, Reivewed immunizatonis, revewied sun/skin cancer screening. Reviewed colon/breast cancer screening and will montior response. Encourage helathy food choices. Lipid screening 11/09/2024 Assessment & Plan (11/09/2024 10:37 AM AUTOMOBILE SERVICE ADVISOR): Labwork ordered and pending. DILMA on CPAP 11/09/2024 Assessment & Plan (11/09/2024 10:37 AM AUTOMOBILE SERVICE ADVISOR): Reviewed nightly positive pressure therapy and will continue to follow response. BMI 33.0-33.9,adult 11/09/2024 Assessment & Plan (11/09/2024 10:37 AM AUTOMOBILE SERVICE ADVISOR): Encourage 150min/week aerobic exericse. Heatlhy food choices. Obesity (BMI 30.0-34.9) 11/09/2024 Assessment & Plan (11/09/2024 10:37 AM AUTOMOBILE SERVICE ADVISOR): As above. Intermittent constipation 04/13/2024 Tubular adenoma of colon 04/13/2024 Chronic sinusitis 03/05/2024 Assessment & Plan (11/09/2024 10:36 AM AUTOMOBILE SERVICE ADVISOR): As above. Assessment & Plan (03/05/2024 9:12 [...] 10/11/2023 Assessment & Plan (10/11/2023 11:06 AM AUTOMOBILE SERVICE ADVISOR): Prescribed Augmentin, instructed patient to take medication with food. Complete prednisone taper as prescribed. Recommended patient use sinus rinse with distilled water only. Continue Flonase. Follow-up if no improvement. Jovanni med sinus rinse Diverticular disease 03/18/2022 History of diverticulitis 03/18/2022 Assessment & Plan (11/09/2024 10:36 AM AUTOMOBILE SERVICE ADVISOR): No recurrent enteritis sypjtoms. Reivweed workup with GI. History of repair of hiatal hernia 02/09/2022 Assessment & Plan (11/09/2024 10:35 AM AUTOMOBILE SERVICE ADVISOR): Limits emesis and wretchintg during periods of prior evalaution. Assessment & Plan (12/29/2022 5:01 PM AUTOMOBILE SERVICE ADVISOR): Repair of the hiatal hernia cleared most of her GI symptoms. Good recover and no issues at this time. Passage of loose stools 02/09/2022 Right sided abdominal pain 02/09/2022 Change in bowel habits 02/09/2022 Dyspepsia 04/09/2021 Assessment & Plan (12/29/2022 5:03 PM AUTOMOBILE SERVICE ADVISOR): Related to GERD and improved after the [...] disorders Assessment & Plan (11/03/2020 8:25 AM AUTOMOBILE SERVICE ADVISOR): Lipid panel ordered; will call w/results when received. Reviewed diet/exercise recommendations. Encounter for screening mamm ogram for malignant neoplasm of breast 11/03/2020 Assessment & Plan (11/03/2020 8:26 AM AUTOMOBILE SERVICE ADVISOR): Mammogram order given; will call with results when received. Encouraged to perform monthly SBE. Encounter for medical examination to establish c are 11/01/2020 Assessment & Plan (11/01/2020 9:04 PM AUTOMOBILE SERVICE ADVISOR): -reviewed screening guidelines: no family history of [...] 06/03/2020 Assessment & Plan (11/09/2024 10:35 AM AUTOMOBILE SERVICE ADVISOR): Continues on nightly CPAP therapy to good effect and will montior response. Assessment & Plan (11/01/2020 9:06 PM AUTOMOBILE SERVICE ADVISOR): Managed by Dr Plata. DILMA/CPAP. Hiatal hernia 10/14/2019 Overview (06/17/2020): Managed by GI Assessment & Plan (12/04/2020 10:52 AM AUTOMOBILE SERVICE ADVISOR): I will set the patient up for [...] surgery Assessment & Plan (12/03/2020 3:36 PM AUTOMOBILE SERVICE ADVISOR): Patient continues to have symptoms of gastroesophageal reflux disease likely related to the presence of the small hiatal hernia contributing to the reflux. I will refer the patient to surgery for hiatal hernia repair consideration. Assessment & Plan (07/05/2020 11:44 PM CDT): Small hiatal hernia noted on endoscopy. Symptoms controled. Assessment & Plan (11/11/2019 7:27 PM AUTOMOBILE SERVICE ADVISOR): This is likly adding to her persistent symptoms. Will follow up in 3 months. If she remained symptomatic specially with vomiting and regurgitation then schedule her for 24 hours esophageal impedence pH monitoring with motility testing and discuss surgical repair. Assessment & Plan (10/14/2019 6:47 PM AUTOMOBILE SERVICE ADVISOR): This is likely a main contributing factor [...] disease. Assessment & Plan (11/11/2019 7:29 PM AUTOMOBILE SERVICE ADVISOR): Patient need agressive intervention for weight loss. So far seems she want to do it herself. Weight loss will improve outcome for HH repair surgery as well as likely help better control her symptoms. Assessment & Plan (10/14/2019 6:48 PM AUTOMOBILE SERVICE ADVISOR): Patient will benefit from weight loss to control her symptoms, and also improve outcome with any surgical repair of the hiatal hernia. Assessment & Plan (09/24/2019 8:06 PM AUTOMOBILE SERVICE ADVISOR): Worsening. Encouraged patient to decrease weight, increase daily exercise, and modify diet. GERD (gastroesophageal reflux disease) 9 Overview (06/17/2020): Managed by GI Assessment & Plan (12/29/2022 5:01 PM AUTOMOBILE SERVICE ADVISOR): All symptoms resolved after repair of the [...] needed. Assessment & Plan (12/03/2020 3:35 PM AUTOMOBILE SERVICE ADVISOR): Persistent regurgitation and the vomiting and heartburn symptoms likely related to her small hiatal hernia and low GE junction sphincter pressure. Will continue Protonix on daily basis and also restart Reglan twice a day. Assessment & Plan (11/01/2020 9:05 PM AUTOMOBILE SERVICE ADVISOR): Taking pantoprazole 40mg daily. Reviewed provocative foods [...] for Assessment & Plan (11/11/2019 7:26 PM AUTOMOBILE SERVICE ADVISOR): Continue Protonix, discussed diet again, and will follow up in 3 months. Will add Reglan 10 mg to be taken 1-2 times daily before meals to improve gastric emptying and avoid regurgitation. Assessment & Plan (10/14/2019 6:45 PM AUTOMOBILE SERVICE ADVISOR): Still having regurgitations adding to her dysphagia. Will continue Protonix daily, add Regaln 10 mg at night. Follow up in 4-6 weeks. Assessment & Plan (09/24/2019 8:06 PM AUTOMOBILE SERVICE ADVISOR): Managed by GI. Stable. Cont. Current meds. Assessment & Plan (07/22/2019 11:20 AM CDT): Start Protonix once daily. Follow up in 1 month. Allergic rhinitis 05/20/2017 Assessment & Plan (11/09/2024 10:35 AM AUTOMOBILE SERVICE ADVISOR): Continues on dual agent therapy and will [...] surgery. Assessment & Plan (10/11/2023 11:07 AM AUTOMOBILE SERVICE ADVISOR): Patient taking Zyrtec nightly, unsure if she is noted any improvement. Would benefit from sinus rinses as mentioned above. Can try switching up antihistamines (claritin, xyzal),Will re-evaluate at follow-up next month. Assessment & Plan (06/17/2020 10:30 AM CDT): Symptoms improved with current regiment, continue. Assessment & Plan (09/24/2019 8:06 PM AUTOMOBILE SERVICE ADVISOR): Add Zyrtec. Cont Flonase. Pure hypercholesterolemia 05/20/2017 [...] months. Assessment & Plan (09/24/2019 8:05 PM AUTOMOBILE SERVICE ADVISOR): Labs ordered, low chol diet recommended. Resolved Problems Problem Noted Date Diagnosed Date Resolved Date BMI 33.0-33.9,adult 11/03/2020 10/11/20 23 Assessment & Plan (11/03/2020 8:25 AM AUTOMOBILE SERVICE ADVISOR): Reviewed need to lose weight, reviewed health benefits. Reviewed recommendations for daily intake & activity 20-30 minutes/day. Discussed healthy diet and importance of regular physical activity. UTI symptoms 11/03/2020 10/11/2023 Assessment & Plan (11/03/2020 8:56 AM AUTOMOBILE SERVICE ADVISOR): NEG UA. Will start OTC Azo/yeast treatment. [...] needed. Assessment & Plan (10/14/2019 6:44 PM AUTOMOBILE SERVICE ADVISOR): Remain symptomatic with symptoms likely related to her hiatal hernia. Will schedule Esophagogram for further evaluation. Assessment & Plan (07/22/2019 11:18 AM CDT): Schedule EGD for further evaluation. Maxillary sinusitis 01/09/2018 09/24/20 19 Assessment & Plan (01/09/2018 10:40 AM AUTOMOBILE SERVICE ADVISOR): FLU test negative today in the office. [...] 019 Assessment & Plan (01/09/2018 10:36 AM AUTOMOBILE SERVICE ADVISOR): 12 pound weight unintentional weight loss in 7 months. Will check TSH and CBCd. Pt with fatigue also. Acute cystitis 12/02/2016 09/24/2019 Overview (02/18/2017): Acute cystitis without hematuria Immunizations Immunization Administration Dates Next Due Hep A, Adult 06/20/2006 Influenza, Unspecified 10/11/2023(Deferr ed: Patient Refused),10/20/2022(Deferred: Patient Refused),08/14/2022(Deferred: Patient Refused),11/05/2021(Deferred: Patient Refused),07/15/2021(Deferred: Patient Refused),11/03/2020(Deferred: Patient Refused),07/15/2020(Deferred: Patient Refused),11/14/2019(Deferred: Patient Refused),10/16/2018(Deferred: Patient ill today) MMR 11/20/2007 Tdap 11/20/2007 Social History Tobacco Use Types Packs/Day Years [...] on file Legal Sex Female 3:40 PM AUTOMOBILE SERVICE ADVISOR Gender Identity Not on file Sexual Orientation Not on file Last Filed Vital Signs Vital Sign Reading Time Taken Comments Blood Pressure 157/94 12/24/2024 8:00 AM AUTOMOBILE SERVICE ADVISOR Pulse 70 12/24/2024 8:00 AM AUTOMOBILE SERVICE ADVISOR Temperature 36.7 C (98 F) 11/09/2024 8:56 AM AUTOMOBILE SERVICE ADVISOR Respiratory Rate 18 11/09/2024 8:56 AM AUTOMOBILE SERVICE ADVISOR Oxygen Saturation 96% 12/24/2024 8:00 AM AUTOMOBILE SERVICE ADVISOR Inhaled Oxygen Concentration - - Weight 93 kg (205 lb) 12/24/2024 8:00 AM AUTOMOBILE SERVICE ADVISOR Height 170.2 cm (5' 7.01 ) 12/24/2024 8:00 AM CS T Body Mass Index 32.1 12/24/2024 8:00 AM AUTOMOBILE SERVICE ADVISOR Plan of Treatment Not on file Procedures Procedure Name Priority Date/Time Associated Diagnosis Comments MAMMOGRAPHY Routine 01/05/2024 COLONOSCOPY 04/19/2022 11:34 AM CDT from Last 3 Months or Most Recently Relevant to Health Maintenance Results * HM MAMMOGRAPHY (01/05/2024) Mammography Normal us Historical Provider HEALTH MAINTENANCE Final Result * COLONOSCOPY (04/19/2022 11:34 AM CDT) Anatomical Region Laterality Modality Other Narrative Procedure Note Vijay Samuels MD - 04/19/2022 11:34 AM CDT [facility] Patient Name: Tricia Gonzales Procedure Date: 04/19/2022 11:34 AM Date of : 1965 Admit Type: Outpatient Age: 56 Gender: Female Attending MD: Vijay Samuels M.D. Room: [facility] ENDOSCOPY ROOM 1 Note Status: Finalized Patient [...] under direct vision. The Pediatric Colonoscope PCF-[id number] was introducedthrough the anus and advanced to [...] 11:34 AM Procedure Code(s): --- Professional --- 79193, Colonoscopy, flexible; with biopsy, single or multiple Diagnosis Code(s): --- Professional --- Z86.010, Personal history of colonic polyps K64.8, Other hemorrhoids D12.0, Benign neoplasm of cecum K57.30, Diverticulosis of large intestine without perforation orabscess without bleeding CPT copyright 2020 [employer]. All rights reserved. The codes documented in this report are preliminary and upon interpreter for the deaf reviewmay be revised to meet current compliance requirements. Recognized by the [employer] for promoting quality in endoscopy us Vijay Samuels MD ENDOSCOPY PROCEDURES Final Result from Last 3 Months or Most Recently Relevant to Health Maintenance Insurance [employer] PPO [place] Advance Directives For more information, please contact: [phone] * Full Code (Latest Code Status on [...] 1:20 PM 07/25/2019 1:20 PM Care Teams Marketing Information Analyst Relationship Specialty Start Date End Date Federico Vasques MD [address] [place] [address] PCP - General Family Medicine 11/03/20 Vijay Samuels MD Consulting Physician Gastroenterology 09/21/19 Carlton Scott MD Scout Leaser Obstetrics and Gynecology 09/24/19 Yoselyn Plata MD Consulting Physician Neurology 09/24/19 Lluvia Knapp NP Nurse Practitioner Family Medicine 11/03/20
[2025-01-17 09:15] LABS: EDUAAPPEAR Clear; EDUABILI 1+ (Negative); EDUABLOOD Trace (Negative); EDUACOLOR1 Orange; EDUAGLUCOSE Trace (Negative); EDUAKETONE Trace (Negative); EDUALEUKO 1+ (Negative); EDUANITRATE Positive (Negative); EDUAPH 6.5; EDUAPROTEIN 2+ (Negative)
== END 2025-01-17 09:13 | disposition home or self-care (01) ==
PROVIDERS: Emergency Provider Nurse Practitioner Family; PCP Family Medicine
DX: R30.0 Dysuria (principal)
CPT/HCPCS: 81003; 87077; 87086; 87186; 99213; G0463

== ENCOUNTER 2025-07-20 11:58 | Emergency (ER) | payer BC, SELFPAY ==
--- OUTSIDE RECORDS SUMMARY | 2025-07-20 12:00 | XMS_ITS | Clinical Summary ---
Author Organization [facility] Address [address] [place] [address] Care Team Providers Care Food Manager Name Role Phone Vijay Samuels MD Unavailable [phone] Carlton Scott MD Unavailable [phone] Yoselyn Plata MD Unavailable Lluvia Knapp NP Unavailable [phone] Federico Vasques MD Primary Care Provider [phone] Allergies Active Allergy Reactions Criticality Noted Date [...] DAILY NEEDED FOR ALLERGIES 90 tablet 4 5 Active dextroamphetami ne-amphetamine XR (ADDERALL XR) 30 mg 24 hr capsuleIndicati ons:Severe obstructive sleep apnea Take 1 capsule (30 mg total) by mouth daily 30 capsule 5 Active dextroamphetami ne-amphetamine XR (ADDERALL XR) 30 mg 24 hr capsuleIndicati ons:Severe obstructive sleep apnea Take 1 capsule (30 mg total) by mouth daily 30 capsule 07/17/20 25 Discontin ued(Reord er) Active Problems Problem Noted Date Diagnosed Date Narcolepsy without cataplexy(347.00) 04/29/2025 Annual physical exam 11/09/2024 Assessment & Plan (11/09/2024 10:36 AM MASSAGE COORDINATOR): Focus of exam is preventative in nature, Reivewed immunizatonis, revewied sun/skin cancer screening. Reviewed colon/breast cancer screening and will montior response. Encourage helathy food choices. Lipid screening 11/09/2024 Assessment & Plan (11/09/2024 10:37 AM MASSAGE COORDINATOR): Labwork ordered and pending. DILMA on CPAP 11/09/2024 Assessment & Plan (11/09/2024 10:37 AM MASSAGE COORDINATOR): Reviewed nightly positive pressure therapy and will continue to follow response. BMI 33.0-33.9,adult 11/09/2024 Assessment & Plan (11/09/2024 10:37 AM MASSAGE COORDINATOR): Encourage 150min/week aerobic exericse. Heatlhy food choices. Obesity (BMI 30.0-34.9) 11/09/2024 Assessment & Plan (11/09/2024 10:37 AM MASSAGE COORDINATOR): As above. Intermittent constipation 04/13/2024 Tubular adenoma of colon 04/13/2024 Chronic sinusitis 03/05/2024 Assessment & Plan (11/09/2024 10:36 AM MASSAGE COORDINATOR): As above. Assessment & Plan (03/05/2024 9:12 [...] 10/11/2023 Assessment & Plan (10/11/2023 11:06 AM MASSAGE COORDINATOR): Prescribed Augmentin, instructed patient to take medication with food. Complete prednisone taper as prescribed. Recommended patient use sinus rinse with distilled water only. Continue Flonase. Follow-up if no improvement. Jovanni med sinus rinse Diverticular disease 03/18/2022 History of diverticulitis 03/18/2022 Assessment & Plan (11/09/2024 10:36 AM MASSAGE COORDINATOR): No recurrent enteritis sypjtoms. Reivweed workup with GI. History of repair of hiatal hernia 02/09/2022 Assessment & Plan (11/09/2024 10:35 AM MASSAGE COORDINATOR): Limits emesis and wretchintg during periods of prior evalaution. Assessment & Plan (12/29/2022 5:01 PM MASSAGE COORDINATOR): Repair of the hiatal hernia cleared most of her GI symptoms. Good recover and no issues at this time. Passage of loose stools 02/09/2022 Right sided abdominal pain 02/09/2022 Change in bowel habits 02/09/2022 Dyspepsia 04/09/2021 Assessment & Plan (12/29/2022 5:03 PM MASSAGE COORDINATOR): Related to GERD and improved after the [...] disorders Assessment & Plan (11/03/2020 8:25 AM MASSAGE COORDINATOR): Lipid panel ordered; will call w/results when received. Reviewed diet/exercise recommendations. Encounter for screening mamm ogram for malignant neoplasm of breast 11/03/2020 Assessment & Plan (11/03/2020 8:26 AM MASSAGE COORDINATOR): Mammogram order given; will call with results when received. Encouraged to perform monthly SBE. Encounter for medical examination to establish c are 11/01/2020 Assessment & Plan (11/01/2020 9:04 PM MASSAGE COORDINATOR): -reviewed screening guidelines: no family history of [...] 06/03/2020 Assessment & Plan (11/09/2024 10:35 AM MASSAGE COORDINATOR): Continues on nightly CPAP therapy to good effect and will montior response. Assessment & Plan (11/01/2020 9:06 PM MASSAGE COORDINATOR): Managed by Dr Plata. IDLMA/CPAP. Hiatal hernia 10/14/2019 Overview (06/17/2020): Managed by GI Assessment & Plan (12/04/2020 10:52 AM MASSAGE COORDINATOR): I will set the patient up for [...] surgery Assessment & Plan (12/03/2020 3:36 PM MASSAGE COORDINATOR): Patient continues to have symptoms of gastroesophageal reflux disease likely related to the presence of the small hiatal hernia contributing to the reflux. I will refer the patient to surgery for hiatal hernia repair consideration. Assessment & Plan (07/05/2020 11:44 PM CDT): Small hiatal hernia noted on endoscopy. Symptoms controled. Assessment & Plan (11/11/2019 7:27 PM MASSAGE COORDINATOR): This is likly adding to her persistent symptoms. Will follow up in 3 months. If she remained symptomatic specially with vomiting and regurgitation then schedule her for 24 hours esophageal impedence pH monitoring with motility testing and discuss surgical repair. Assessment & Plan (10/14/2019 6:47 PM MASSAGE COORDINATOR): This is likely a main contributing factor [...] disease. Assessment & Plan (11/11/2019 7:29 PM MASSAGE COORDINATOR): Patient need agressive intervention for weight loss. So far seems she want to do it herself. Weight loss will improve outcome for HH repair surgery as well as likely help better control her symptoms. Assessment & Plan (10/14/2019 6:48 PM MASSAGE COORDINATOR): Patient will benefit from weight loss to control her symptoms, and also improve outcome with any surgical repair of the hiatal hernia. Assessment & Plan (09/24/2019 8:06 PM MASSAGE COORDINATOR): Worsening. Encouraged patient to decrease weight, increase daily exercise, and modify diet. GERD (gastroesophageal reflux disease) 9 Overview (06/17/2020): Managed by GI Assessment & Plan (12/29/2022 5:01 PM MASSAGE COORDINATOR): All symptoms resolved after repair of the [...] needed. Assessment & Plan (12/03/2020 3:35 PM MASSAGE COORDINATOR): Persistent regurgitation and the vomiting and heartburn symptoms likely related to her small hiatal hernia and low GE junction sphincter pressure. Will continue Protonix on daily basis and also restart Reglan twice a day. Assessment & Plan (11/01/2020 9:05 PM MASSAGE COORDINATOR): Taking pantoprazole 40mg daily. Reviewed provocative foods [...] for Assessment & Plan (11/11/2019 7:26 PM MASSAGE COORDINATOR): Continue Protonix, discussed diet again, and will follow up in 3 months. Will add Reglan 10 mg to be taken 1-2 times daily before meals to improve gastric emptying and avoid regurgitation. Assessment & Plan (10/14/2019 6:45 PM MASSAGE COORDINATOR): Still having regurgitations adding to her dysphagia. Will continue Protonix daily, add Regaln 10 mg at night. Follow up in 4-6 weeks. Assessment & Plan (09/24/2019 8:06 PM MASSAGE COORDINATOR): Managed by GI. Stable. Cont. Current meds. Assessment & Plan (07/22/2019 11:20 AM CDT): Start Protonix once daily. Follow up in 1 month. Allergic rhinitis 05/20/2017 Assessment & Plan (11/09/2024 10:35 AM MASSAGE COORDINATOR): Continues on dual agent therapy and will [...] surgery. Assessment & Plan (10/11/2023 11:07 AM MASSAGE COORDINATOR): Patient taking Zyrtec nightly, unsure if she is noted any improvement. Would benefit from sinus rinses as mentioned above. Can try switching up antihistamines (claritin, xyzal),Will re-evaluate at follow-up next month. Assessment & Plan (06/17/2020 10:30 AM CDT): Symptoms improved with current regiment, continue. Assessment & Plan (09/24/2019 8:06 PM MASSAGE COORDINATOR): Add Zyrtec. Cont Flonase. Pure hypercholesterolemia 05/20/2017 [...] months. Assessment & Plan (09/24/2019 8:05 PM MASSAGE COORDINATOR): Labs ordered, low chol diet recommended. Resolved Problems Problem Noted Date Diagnosed Date Resolved Date BMI 33.0-33.9,adult 11/03/2020 10/11/20 23 Assessment & Plan (11/03/2020 8:25 AM MASSAGE COORDINATOR): Reviewed need to lose weight, reviewed health benefits. Reviewed recommendations for daily intake & activity 20-30 minutes/day. Discussed healthy diet and importance of regular physical activity. UTI symptoms 11/03/2020 10/11/2023 Assessment & Plan (11/03/2020 8:56 AM MASSAGE COORDINATOR): NEG UA. Will start OTC Azo/yeast treatment. [...] needed. Assessment & Plan (10/14/2019 6:44 PM MASSAGE COORDINATOR): Remain symptomatic with symptoms likely related to her hiatal hernia. Will schedule Esophagogram for further evaluation. Assessment & Plan (07/22/2019 11:18 AM CDT): Schedule EGD for further evaluation. Maxillary sinusitis 01/09/2018 09/24/20 19 Assessment & Plan (01/09/2018 10:40 AM MASSAGE COORDINATOR): FLU test negative today in the office. [...] 019 Assessment & Plan (01/09/2018 10:36 AM MASSAGE COORDINATOR): 12 pound weight unintentional weight loss in 7 months. Will check TSH and CBCd. Pt with fatigue also. Acute cystitis 12/02/2016 09/24/2019 Overview (02/18/2017): Acute cystitis without hematuria Encounters Date Type Department Care Team Description 06/14/2025 Documentation [facility] [address] [address] [place] [address] Susana Brown MA 05/09/2025 8:45 AM CDT Office Visit [facility] [address] [place] [address] [address] [place] [address] Yoselyn Plata MD Severe obstructive sleep apnea (Primary Dx); Hypersomnia with sleep apnea; Obesity (BMI 30.0-34.9) 04/25/2025 7:00 AM CDT - 04/25/2025 11:59 PM CDT Hospital Encounter [facility] [address] [place] [id number] Narcolepsy without cataplexy(347.00) Discharge Disposition: Discharge to home or self care 04/24/2025 7:44 PM CDT - 04/24/2025 11:59 PM CDT Hospital Encounter [facility] [address] [place] [id number] Narcolepsy without cataplexy(347.00) Discharge Disposition: Discharge to home or self care from Last 3 Months Immunizations Immunization Administration [...] on file Legal Sex Female 3:40 PM MASSAGE COORDINATOR Gender Identity Not on file Sexual Orientation Not on file Obstetrics History Last Filed Vital Signs Vital Sign Reading Time Taken Comments Blood Pressure 130/88 05/09/2025 8:28 AM CDT Pulse 66 05/09/2025 8:28 AM CDT Temperature 36.7 C (98 F) 11/09/2024 8:56 AM MASSAGE COORDINATOR Respiratory Rate 18 11/09/2024 8:56 AM MASSAGE COORDINATOR Oxygen Saturation 97% 05/09/2025 8:28 AM CDT Inhaled Oxygen Concentration - - Weight 91.6 kg (202 lb) 05/09/2025 8:28 AM CDT Height 170.2 cm (5' 7.01) 05/09/2025 8:28 AM CD T Body Mass Index 31.63 05/09/2025 8:28 AM CDT Plan of Treatment Health Maintenance Due [...] Procedure Name Priority Date/Time Associated Diagnosis Comments MULTIPLE SLEEP LATENCY TEST Routine 04/29/2025 9:57 AM CDT Narcolepsy without cataplexy(347.00) PSG (SIMPLE) Routine 04/29/2025 9:55 AM CDT Narcolepsy without cataplexy(347.00) HM MAMMOGRAPHY Routine 01/05/2024 COLONOSCOPY 04/19/2022 11:34 AM CDT from Last 3 Months or Most Recently Relevant to Health Maintenance Results * Multiple Sleep Latency Test (04/29/2025 9:57 AM CDT) Impressions Yoselyn Plata MD - 04/29/2025 9:57 AM CDT Impression: This is a normal Multiple sleep latency test. Clinical correlation recommended. us Yoselyn Plata MD SLEEP CENTER ORDERABLES Final Re sult * PSG (04/29/2025 9:55 AM CDT) Impressions Yoselyn Plata MD - 04/29/2025 9:55 AM CDT Indication for study: is a 59-year-old with obstructive sleep disorder breathing on automatic positive pressure therapy. Despite compliance with therapy patient reports extreme daytime sleepiness. The patient's [place] Sleepiness scale score is 15. Present study was a Polysomnography preceding an Multiple sleep latency test Vital statistics: Age: 59 years Height: 67 in Weight: 206 lb BMI: 32.26 Procedure: A polysomnographic sleep study was performed. Variables monitored and recorded during the study; EEG, EOG, EKG, Chin EMG, snoring, lower extremity EMG, nasal and oral airflow, chest and abdominal wall movements, oxygen saturation and audio/video monitoring . Unless otherwise noted, polysomnogram was recorded and scored in accordance with recommended parameters as outlined in the AASM Manual for the Scoring of Sleep and Associated Events, Version 2.6. Hypopneas were scored in accordance with acceptable parameters as outlined in Chapter VIII, Part 1: Rules for Adults, Category D, Section 1B. Description of polysomnography findings: The patient had 490.5 minute of monitored time. 414.5 minute total sleep was present. Sleep efficiency was 84.5%. Latency from lights out to stage N1 was 6 minute, latency to stage N2 from sleep onset was 0.5 minute, latency to stage N2 from sleep onset was 23 minute, and latency to stage REM from sleep onset was 73 minutes. Sleep stage recording stage wake of 76.5 minute. Stage non-REM comprised 336.5 minute (81.2% of total sleep time). This included stage N1 of 41.5 minute (10% total sleep time), stage N2 of 248.5 minute (60% of total sleep time), stage N3 of 46.5 minute (11.2% total sleep time). Stage REM comprised 78 minute (18.8% of total sleep time). Positive pressure therapy was initiated and continuous positive pressures of 10- 12 cm water were attempted. Continuous positive pressure therapy of 12 cm was found to be optimal. Total recording time was 138 minutes. Sleep efficiency was 92.4%. Adequate REM was obtained. The residual AHI was 1.4. The lowest oxygen saturation was 92%. Average oxygen saturation was 94.5%. A medium F20 AirTouch fullface mask was used Limb movement recording revealed 52 periodic limb movements. Periodic limb movement index was 7.5. Periodic limb movement arousal index was 4.1. Average heart rate during wake was 57.4, and during sleep was 51.6 Impression: 1. Continuous positive pressure therapy of 12 cm was found to be optimal 2. A medium F20 AirTouch fullface mask was used 3. Sleep hygiene should be reviewed to assess factors that may improve sleep quality. 4.Weight management and regular exercise should be initiated or continued 5.Avoid alcohol sedatives and other MILITARY SCIENCE INSTRUCTOR depression that may worsen sleep apnea and disrupt normal sleep architecture 6. Patients with sleep apnea may have significant daytime hypersomnolence. If that is the case, driving or handling heavy machinery should be avoided until the apnea and excessive sleepiness have resolved. Yoselyn Plata MD SLEEP CENTER ORDERABLES Final Re sult * HM MAMMOGRAPHY (01/05/2024) Mammography Normal us Historical Provider HEALTH MAINTENANCE Final Result * COLONOSCOPY (04/19/2022 11:34 AM CDT) Anatomical Region Laterality Modality Other Narrative Procedure Note Vijay Samuels MD - 04/19/2022 11:34 AM CDT [facility] Patient Name: Tricia Gonzales Procedure Date: 04/19/2022 11:34 AM Date of : 1965 Admit Type: Outpatient Age: 56 Gender: Female Attending : Vijay Samuels M.D. Room: [facility] ENDOSCOPY ROOM 1 Note Status: Finalized Patient [...] under direct vision. The Pediatric Colonoscope [id number]-H190L [id number] was introducedthrough the anus and advanced to [...] 11:34 AM Procedure Code(s): --- Professional --- 33894, Colonoscopy, flexible; with biopsy, single or multiple Diagnosis Code(s): --- Professional --- Z86.010, Personal history of colonic polyps K64.8, Other hemorrhoids D12.0, Benign neoplasm of cecum K57.30, Diverticulosis of large intestine without perforation orabscess without bleeding CPT copyright 2020 [employer]. All rights reserved. The codes documented in this report are preliminary and upon repair servicer reviewmay be revised to meet current compliance requirements. Recognized by the [employer] for promoting quality in endoscopy Vijay Samuels MD ENDOSCOPY PROCEDURES Final Result from Last 3 Months or Most Recently Relevant to Health Maintenance Insurance [employer] P[place] Advance Directives For more information, please contact: [phone] * Full Code (Latest Code Status on [...] 1:20 PM 07/25/2019 1:20 PM Care Teams Food Manager Relationship Specialty Start Date End Date Federico [place] [address] PCP - General Family Medicine 11/03/20 Vijay Samuels MD Consulting Physician Gastroenterology 09/21/19 Carlton Scott MD Fashion Model Obstetrics and Gynecology 09/24/19 Yoselyn Plata MD Consulting Physician Neurology 09/24/19 Lluvia Knapp NP Nurse Practitioner Family Medicine 11/03/20
--- OUTSIDE RECORDS SUMMARY | 2025-07-20 12:00 | XMS_ITS | Clinical Summary ---
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 Gender Identity Not on file Sexual Orientation Not on file Plan of Treatment Health Maintenance Due Date Last Done Comments HEPATITIS B VACCINES (1 of 3 - 19+ 3-dose series) 1986 HPV/Cotest (21-29) 1988 CERVICAL CANCER SCREENING 1997 HPV/Cotest (30-65) 1997 PAP SMEAR 1997 FIT-DNA Q 3 years 2012 FIT/FOBT Q 1 year 2012 Flex Sig/CT Colonography Q 5 years 2012 ZOSTER VACCINE (1 of 2) 2017 DTAP/TDAP/TD VACCINES (2 - T d or Tdap) 11/20/2017 11/20/2007 BREAST CANCER SCREENING 12/22/2023 12/22/19 23, 11/25/2021, 11/24/2020, Additional history exists INFLUENZA VACCINE (#1) 2025 COLORECTAL SCREENING 04/19/2032 04/19/2022 Colorectal Cancer Screening 04/19/2032 Insurance BCBS TRADITIONAL
--- OUTSIDE RECORDS SUMMARY | 2025-07-20 12:00 | XMS_ITS | Clinical Summary ---
Author Organization [facility] Address [address] [place] [address] Phone Care Team Providers Care Furniture Installer Name Role Phone Federico Vasques MD Primary Care Provider [phone] Allergies Active Allergy Reactions Criticality Noted Date Comments Fluconazole Vomiting 02/01/2024 Metronidazole Unknown 02/02/2024 Medications cetirizine (ZyrTEC) 10 MG Tablet Take 10 mg by mouth daily. 4 Active ergocalciferol (VITAMIN D) 05567 UNIT Capsule Take 1.25 mg by mouth [...] deficiency 02/01/2024 Obesity 02/01/2024 Allergic rhinitis 02/01/2024 Social History Tobacco Use Types Packs/Day Years Used Date Smoking Tobacco: Never Smokeless Tobacco: Never Tobacco Cessation:Counseling Given: Not Answered Alcohol Use Standard Drinks/Week Comments Never 0 (1 standard drink = 0.6 oz pur e alcohol) [facility] [employer] Answer Date Recorded In the past 12 months has [employer] electric, gas, oil, or water company threatened to shut off services in your home? Patient declined 02/01/2024 Social Connection and Isolation Panel Answer Date Recorded In a typical week, how many times do you talk on the phone with family, friends, or neighbors? Patient declined 02/01/2024 How often do you get togethe r with friends or relatives? Patient declined 02/01/2024 How often do you attend mormon or orthodoxy serv ices? Patient declined 02/01/2024 Active Member [...] medical care, and heating? Patient declined 02/01/2024 [facility] - Occupational Stress Questionnaire Answer Date Recorded [...] place to sleep or slept in a alf (including now)? Patient declined 02/01/2024 Comments No [...] 8:30 PM CDT Height 170.2 cm (5' 7) 02/01/2024 8:30 PM CDT Body Mass Index 34.72 02/01/2024 8:30 PM CDT Plan of Treatment Health Maintenance Due Date Last Done Comments Hepatitis C Virus (HCV) Screening 1965 Hepatitis B Immunization (1 of 3 - 19+ 3-dose series) 1986 Cologuard 2012 Pneumococcal Immunization (50+ years) (1 of 1 - PCV) 2017 Zoster Immunization (1 of 2) 2017 Immunochemical Fecal Occult Blood 08/27/2023 08/27/2022 Mammogram 01/05/2025 01/05/2024, 06/2023, 12/22/2022, Additional history exists Influenza Immunization (#1) 2025 SARS-COV-2 Immunization ( season) 2025 02/24/2021, 01/29/2021 Colonoscopy 04/19/2032 04/19/2022 Colorectal Cancer Screening 04/19/2032 Respiratory Syncytial Virus (RSV) Immunization (Adult) (1 - 1-dose 75+ series) 2042 DTaP/Tdap/Td Immunization Discontinued 11/20/2007 TdaP Immunization Completed 11/20/2007 Human Papillomavirus (HPV) Immunization Aged Out No longer eligible based on patient's age to complete this topic Meningococcal Immunization (ACWY) Aged Out No longer eligible based on patient's age to complete this topic Rotavirus Immunization Aged Out No lo nger eligible based on patient's age to complete this topic Procedures Procedure Name Priority Date/Time Associated Diagnosis Comments NAYE SCREENING BILATERAL DIGITAL W CAD W HUDSON Routine 01/05/2024 9:19 AM RECREATIONAL THERAPIST Visit for screening mammogram from Last 3 Months or Most Recently Relevant to Health Maintenance Results * NAYE SCREENING BILATERAL DIGITAL W CAD W HUDSON (01/05/2024 9:19 AM RECREATIONAL THERAPIST) Anatomical Region Laterality Modality breast Bilateral Mammography 01/05/2024 9:04 AM RECREATIONAL THERAPIST Narrative 01/05/2024 3:38 PM RECREATIONAL THERAPIST - NAYE SCREENING BILATERAL DIGITAL W CAD [...] to exams dated: 12/22/2022, 11/25/2021, and 11/24/2020 [facility]. BREAST TISSUE:The tissue of both breasts [...] exam. Electronically signed by: Viviana phillips/sandee:01/05/2024 14:31:11 Coal Gasification Technician(s): RT Kanika(R)(M), [facility] letter sent: Normal Exam Reading location: [facility] BI-RADS: 1 Negative Procedure Note Viviana Duarte [...] to exams dated: 12/22/2022, 11/25/2021, and 11/24/2020 [facility]. BREAST TISSUE:The tissue of both breasts [...] exam. Electronically signed by: Viviana phillips/sandee:01/05/2024 14:31:11 Coal Gasification Technician(s): RT Kanika(R)(M), [facility] letter sent: Normal Exam Reading location: [facility] BI-RADS: 1 Negative Federico Vasques MD IMG MAMMO ORDERABLES Aicha l Result from Last 3 Months or Most Recently Relevant to Health Maintenance Insurance [facility] Advance Directives * Full Code (Latest Code Status on File) Date Activated Date Inactivated Comments 02/01/2024 8:29 PM 02/02/2024 5:29 PM CPR-Full Huan atment: FULL ARREST: Attempt Resuscitation/CPR wit intubation and mechanical ventilation. PRE-ARREST: Use entire range of life support measures to stabilize the patient. Care Teams Furniture Installer Relationship Specialty Start Date End Date [place] [address] PCP - General Internal Medicine 11/24/20
[2025-07-20 12:04] VITALS: BP 153/101; PULSE 85; RESP 20; TEMP 36.7; O2SAT 99
[2025-07-20 12:24] LABS: EDUAAPPEAR Cloudy; EDUABILI Negative (Negative); EDUABLOOD 1+ (Negative); EDUACOLOR1 Yellow; EDUAGLUCOSE Negative (Negative); EDUAKETONE Negative (Negative); EDUALEUKO 2+ (Negative); EDUANITRATE Positive (Negative); EDUAPH 6.5; EDUAPROTEIN Trace (Negative); EDUASPGRAVITY 1.020; EDUAUROBILI 0.2
--- NOTE | 2025-07-20 12:35 | ED.FEMALEGU ---
HPI - Female Genitourinary General Chief complaint: Urogenital-Female Stated complaint: poss UTI Time Seen by Provider: 07/20/25 12:15 Source: patient and RN notes reviewed Mode of arrival: ambulatory Limitations: no limitations History of Present Illness HPI Narrative: 59-year-old female presents Express Care complaining of urinary symptoms for 14 days. Patient reports having dysuria, increased frequency, hesitancy, nocturia, and suprapubic pressure. Patient denies any fevers, abdominal pain, flank pain, back pain, blood in her urine, body aches, chills, nausea, vomiting, diarrhea. Patient has not taken anything [id number] for symptoms. Patient denies any significant past medical history. Related Data Home Medications ?Medication ?Instructions ?Recorded ?Confirmed ?Last Taken ?Type cetirizine 10 mg capsule 10 mg PO DAILY 07/22/20 01/17/25 Unknown History fluticasone propionate 50 2 spray intranasal DAILY 07/22/20 01/31/24 Unknown History mcg/actuation nasal spray,suspension (Flonase Allergy Relief) dextroamphetamine-amphetamine ER PO 07/20/25 Unknown History 30 mg 24hr capsule,extend release Allergies Allergy/AdvReac Type Severity Reaction Status Date / Time latex Allergy Unknown RASH Verified 01/17/25 08:52 fluconazole (From Diflucan) AdvReac Unknown Nausea and Verified 01/17/25 08:52 Vomiting metronidazole AdvReac Unknown N/V Verified 01/17/25 08:52 Review of Systems Review of Systems: CONSTITUTIONAL: Denies fever, chills, body aches, or sweats. EYES: Denies visual changes, redness, or discharge. ENT: Denies rhinorrhea, congestion, sore throat, or otalgia. CARDIOVASCULAR: Denies chest pain, palpitations, or edema. RESPIRATORY: Denies cough or dyspnea. GASTROINTESTINAL: Denies abdominal pain, nausea, vomiting, or diarrhea. GENITOURINARY: Positive for dysuria, frequency, hesitancy, nocturia, increased frequency. Negative for hematuria or vaginal bleeding. SKIN: Denies rash or itching. MUSCULOSKELETAL: Denies back pain, joint pain, or myalgia. NEUROLOGIC: Denies headache, numbness, or weakness. PSYCHIATRIC: Denies anxiety or depression. All other systems reviewed are negative, except as documented in HPI. [facility] Surgical History Surgical History History of repair of hiatal hernia Comments At the time of my signature, I reviewed and agree with the nursing past medical, surgical, social, and family history. There is no relevant family history pertinent to the patient complaint. Exam Narrative: GENERAL: This is a well-nourished, well-developed adult, in no apparent distress. They are non ill-appearing, nontoxic appearing. HEAD: normocephalic, atraumatic. EYES: Sclera clear/white. Vision is grossly intact. Conjunctiva normal bilaterally. Extraocular movements intact. EARS: External ears normal,Hearing grossly intact. NOSE: External nose normal THROAT: Mucous membranes moist NECK: Normal range of motion CARDIOVASCULAR: Regular rate and rhythm. Normal S1-S2. No clicks, gallops, rubs, murmurs. RESPIRATORY: Respiratory rate normal, respiratory effort nonlabored, no respiratory distress. Lung sounds clear to auscultation throughout. Lung sounds equal bilaterally. No adventitious lung sounds. GASTROINTESTINAL: Abdomen soft, flat, non-tender, nondistended. Bowel sounds are active. No hepato-splenomegaly, or palpable masses. No guarding. No rebound tenderness. SKIN: warm, Dry, intact with no suspicious lesions or rash, good texture and turgor. NEURO: awake, alert, and oriented to person, place and time. There were no obvious focal neurologic abnormalities. EXTREMITIES: No joint tenderness, effusion, or edema noted. BACK: Nontender without deformity. No CVA tenderness. Course Course Emergency Course: Portions of this record may have been created with voice recognition software Level of Care: Express Care Visit Vital Signs Vital signs: Vital Signs Temperature 98.0 F 07/20/25 12:04 Pulse Rate 85 07/20/25 12:04 Respiratory Rate 20 07/20/25 12:04 Blood Pressure 153/101 H 07/20/25 12:04 Pulse Oximetry 99 07/20/25 12:04 Oxygen Delivery Room Air 07/20/25 12:04 Temperature 98.0 F 07/20/25 12:04 Pulse Rate 85 07/20/25 12:04 Respiratory Rate 20 07/20/25 12:04 Blood Pressure 153/101 H 07/20/25 12:04 Pulse Oximetry 99 07/20/25 12:04 Oxygen Delivery Room Air 07/20/25 12:04 MDM - Female Genitourinary MDM Narrative Medical decision making narrative: Urine dipstick showed evidence of urinary tract infection. Urine culture pending. Will prescribe cephalexin. Discussed physical exam findings. Advised supportive measures and signs/symptoms to go to the ER. Pt is appropriate for outpt treatment and f/u. Differential Diagnosis Differential diagnosis: Likely urinary tract infection, cystitis and other (Pyelonephritis) Lab Data Attestation: I reviewed the patient's lab results. Labs: Lab Results 07/20/25 Range/Units 12:18 POC Urine Color Yellow POC Urine Clarity Cloudy POC Urine pH 6.5 POC Ur Specif [place] 1.020 POC Urine Protein Trace (Negative) POC Ur Glucose (UA) Negative (Negative) POC Urine Ketones Negative (Negative) POC Urine Blood 1+ (Negative) POC Urine Nitrite Positive (Negative) POC Urine Bilirubin Negative (Negative) POC Urine Urobilinogen 0.2 POC U Leukocyte Esteras 2+ (Negative) Discharge Plan Discharge Clinical Impression: Urinary tract infection Qualifiers: Urinary tract infection type: site unspecified Hematuria presence: with hematuria Qualified Code(s): N39.0 - Urinary tract infection, site not specified Patient Disposition: Home Condition: Stable Instructions: Antibiotic Form, Urinary Tract Infection in Women (ED) Additional Instructions: Take the antibiotic as prescribed The urine will be sent of for a culture to identify what type of bacteria is causing your infection. If the culture shows that the antibiotic will not get rid of your infection, you will be notified and a new antibiotic will be called in for you. Increase water intake you will need to follow up with your PCP 3-5 days. Go to the ER for any worsening symptoms, abdominal pain, fevers, nausea, vomiting, or any other concerns Patient Language: Yoruba Prescriptions: New cephalexin 500 mg capsule 500 mg PO BID 7 Days Qty: 14 0RF No Action dextroamphetamine-amphetamine 30 mg capsule,extended release 24hr PO fluticasone propionate [Flonase Allergy Relief] 50 mcg/actuation [place],Suspension 2 spray INTRANASAL DAILY cetirizine 10 mg Capsule 10 mg PO DAILY Follow-up/Referrals: Harms,Federico Lawson M.D. [Primary Care Provider] Time of Disposition: 12:33
== END 2025-07-20 12:39 | disposition home or self-care (01) ==
PROVIDERS: PCP Family Medicine
DX: N39.0 Urinary tract infection, site not specified (principal)
CPT/HCPCS: 81003; 87077; 87086; 87186; 99213; G0463